=== PATIENT | female | born 1945 | race Caucasian/White ===

== ENCOUNTER 2019-08-01 12:34 | Outpatient (CLI) | payer MEDICARE, BC, SELFPAY ==
[2019-08-01 13:06] LABS: Body Fluid WBC 24 u/L; RBC, Body Fluid 0 10^3/uL (0-0)
[2019-08-01 13:19] LABS: Apprearance, Body Fluid CLEAR (CLEAR); Color, Body Fluid COLORLESS (PALE YELLOW)
[2019-08-01 13:20] LABS: PATH Referral YES
== END 2019-08-01 12:35 | disposition home or self-care (01) ==
PROVIDERS: Family Provider Physician Assistant Medical; PCP Physician Assistant Medical; Visit Provider Internal Medicine Nephrology
DX: N18.9 Chronic kidney disease, unspecified (principal); D63.1 Anemia in chronic kidney disease
CPT/HCPCS: 80500; 87070; 87075; 87205; 89050

== ENCOUNTER → 2019-09-21 14:30 | Outpatient (BNVA) | payer MEDICARE, BC, SELFPAY | PROVIDERS: Family Provider Physician Assistant Medical; PCP Physician Assistant Medical; Visit Provider Urology | DX: C67.8 Malignant neoplasm of overlapping sites of bladder (principal); R33.8 Other retention of urine | CPT/HCPCS: 81001 ==

== ENCOUNTER 2019-10-20 13:56 | Outpatient (CLI) | payer MEDICARE, BC, SELFPAY ==
--- NOTE | 2019-10-20 14:07 | XR_ITS ---
WS: [id number] ABDOMEN SERIES Supine, sitting, and upright views of the abdomen CLINICAL INFORMATION: PAIN WITH CATHETER CHECKING POSITION COMPARISON: None. FINDINGS: No free air on the upright view. Normal bowel gas pattern. Scattered stool in the colon. No bowel dis tention. No evidence of high-grade obstruction. Cholecystectomy clips. Dialysis catheter traverses the right midabdomen with tip in the right lower q uadrant Postoperative changes bilateral THAs. Moderate spondylitic changes lumbar spine. Mild lumbar curve. XR/XR abdomen 3V [id number] IMPRESSION: 1. Dialysis catheter traverses the right mid abdomen with tip in the right lo wer quadrant.
== END 2019-10-20 13:57 | disposition home or self-care (01) ==
LOC: RAD 14:00
PROVIDERS: Family Provider Physician Assistant Medical; PCP Physician Assistant Medical; Visit Provider Internal Medicine Nephrology
DX: Z45.2 Encounter for adjustment and management of vascular access device (principal); N18.6 End stage renal disease
CPT/HCPCS: 74021

== ENCOUNTER → 2020-01-25 14:15 | Outpatient (BNVA) | payer MEDICARE, BC, SELFPAY | PROVIDERS: Family Provider Physician Assistant Medical; PCP Physician Assistant Medical; Visit Provider Urology | DX: C67.8 Malignant neoplasm of overlapping sites of bladder (principal) | CPT/HCPCS: 81001 ==

== ENCOUNTER 2020-06-27 18:18 | Emergency (ER) | payer MEDICARE, BC, SELFPAY ==
[2020-06-27 18:21] VITALS: BP 142/80; PULSE 77; RESP 18; TEMP 36.7; O2SAT 97; BMI 38.6
--- NOTE | 2020-06-27 18:38 | CTR_ITS ---
PROCEDURE INFORMATION: Exam: CT Abdomen And Pelvis Without Contrast Exam date and time: 06/27/2020 6:44 PM Age: 75 years old Clinical indication: Other: Incisional bleeding; Prior surgery; Surgery type: RT kidney transplant 05/30. Bilat hip; Additional info: Abdominal pain TECHNIQUE: Imaging protocol: Computed tomography of the abdomen and pelvis without contrast. Sagittal and coronal reformatted images were created and reviewed. Radiation optimization: All CT scans at this facility use at least one of these dose optimization techniques: automated exposure control; mA and/or kV adjustment per patient size (includes targeted exams where dose is matched to clinical indication); or iterative reconstruction. COMPARISON: CR XR abdomen 3V [id number] 10/20/2019 2:13 PM RADIATION DOSE METRICS: Total DLP (mGy-cm): 1969.28 FINDINGS: Limitations: Evaluation of solid organs and vasculature is limited without intravenous contrast. Tubes, catheters and devices: A peritoneal dialysis catheter extends into the lower abdomen. Lungs: Calcified granulomas in the lower right lung. Dependent atelectasis in the left lung. Pleural space: Trace left pleural effusion. Heart: Visualized portions of the heart are mildly enlarged. Small pericardial effusion. Liver: The liver is unremarkable. Gallbladder and bile ducts: Patient has had a previous cholecystectomy. No biliary ductal dilatation. Pancreas: Moderate atrophy of the pancreatic parenchyma. 2.2 x 2.0 cm cystic focus in the uncinate process of the pancreas (series 2, image 56). No pancreatic ductal dilatation. Spleen: The spleen is unremarkable. Adrenal glands: The right and left adrenal glands are unremarkable. Kidneys and ureters: 2.0 cm cyst in the kiana right kidney. The kiana right ureter is unremarkable. There is a transplant kidney in the right lower quadrant. A double-J ureteral stent extends from the transplant kidney along the transplant ureter and into the bladder. No hydronephrosis. There is a low-density fluid collection posterior to the transplant kidney measuring 3.0 x 2.7 x 3.1 cm (series 601, image 64 and series 2, image 135). There is mild inflammation around the transplant kidney and extending inferiorly around the bladder. Patient has had a previous left nephrectomy. Stomach and bowel: No obstruction. No mucosal thickening. Appendix: Appendix not definitely visualized. No inflammatory changes in the pericecal region however. Intraperitoneal space: There is a surgical incision over the right lower quadrant of the abdomen. There is low-density fluid along the incision in the subcutaneous tissues and extending through the lower right rectus muscle and into the lower abdomen anterior to the bladder (series 2, images 122-157). Findings could represent resolving postoperative hemorrhage versus a developing postoperative hematoma. Evaluation for active bleeding cannot be performed without intravenous contrast. There are areas of separation of the incision in the patient's skin. No free intraperitoneal air. See also under kidneys and ureters . Vasculature: Mild atherosclerotic calcification in the coronary arteries. Lymph nodes: No lymphadenopathy. Urinary bladder: The bladder is incompletely filled, which can limit evaluation. See also under kidneys and ureters . Reproductive: Patient has had a previous hysterectomy. The ovaries are not definitely visualized, not an expected in a postmenopausal female. This may be due to ovarian atrophy. Alternatively, the patient may have had a previous bilateral oophorectomy. Bones/joints: Patient has had previous right and left hip arthroplasties. Bones are diffusely osteopenic. Mild degenerative changes of the right and left sacroiliac joints. Multilevel degenerative changes of varying severity in the visualized spine. Soft tissues: Mild body wall edema. See also under intraperitoneal space . CT/CT kidney stone [id number] IMPRESSION: 1. There is a transplant kidney in the right lower quadrant. A double-J ureteral stent extends from the transplant kidney along the transplant ureter and into the bladder. No hydronephrosis. There is a low-density fluid collection posterior to the transplant kidney. This could represent a postoperative seroma or hematoma versus an abscess. Mild inflammation extends from around the transplant kidney inferiorly to to the bladder, concerning for possible infection. Recommend clinical correlation. 2. There is a surgical incision over the right lower quadrant of the abdomen. There is low-density fluid and inflammation along the incision in the subcutaneous tissues and extending through the lower right rectus muscle and into the lower abdomen anterior to the bladder bladder. Findings are concerning for infection/inflammation, possible postoperative hemorrhage is also in the differential diagnosis. Evaluation for active bleeding cannot be performed without intravenous contrast. Recommend clinical correlation. There are areas of separation of the incision in the patient's skin. 3. Trace left pleural effusion. 4. Small pericardial effusion. 5. Cystic focus in the uncinate process of the pancreas. Reimaging every 6 months for 2 years, then every 1 year for 2 years, then every 2 years for 6 years is recommended. Alternatively, endoscopic ultrasound with fine needle aspiration is recommended. (Reference: Douglas, 2017) 6. Mild body wall edema. 7. Incidental/nonacute findings are listed in the report. COMMENTS: 1. Urgent results were discussed with Nurys Beltran on 06/27/2020 at 8:13 PM [employer]. 2. Consistent with the [employer]'s Incidental Findings Committee white paper (J Am Dario Radiol 2018): Any incidental renal lesion less than 1 cm or classified as too small to characterize, or any incidental cystic renal lesion characterized as simple-appearing, is likely benign. No follow-up imaging is recommended for these lesions per consensus recommendations based on imaging criteria. REFERENCES: Douglas HAYNES, et al. Management of Incidental Pancreatic Cysts: A White Paper of the ACR Incidental Findings Committee. J Am Dario Radiol. 2017;14(7):911-923. Radiation Dose CTDIVOL = (mGy): DLP = 1969.28 (mGy-cm)
[2020-06-27 19:19] LABS: Basophils % 0.2 %; Eosinophils % 0.2 %; Hematocrit 29.7 % (37.0-47.0); Hemoglobin 9.2 g/dL (11.5-15.3); Lymphocytes # 0.9 10^3/uL (0.8-4.8); Mean Corpuscular Hemoglobin 30.5 pg (28.0-34.0); Mean Corpuscular Volume 98.3 fL (81-99); Mean Platelet Volume 9.9 fL (7.4-10.4); Monocytes # 0.5 10^3/uL (0.2-0.9); Monocytes % 3.8 %; Neutrophils # 11.02 10^3/uL (1.8-7.7); Neutrophils % 88.2 %; Nucleated Red Blood Cells % 0 %; Platelet Count 245 10^3/cmm (130-400); Red Blood Count 3.02 10^6/uL (4.1-5.3); Red Cell Distribution Width 15.2 % (12.1-15.1); White Blood Count 12.5 10^3/uL (4.0-10.0)
[2020-06-27] MEDS: sodium chloride 0.9% 1,000 ML 100 ML IV (19:21)
--- NOTE | 2020-06-27 19:34 | ED_ITS ---
HPI - Wound/Laceration General: Chief Complaint: Wound/Laceration Stated Complaint: wound check Time Seen by Provider: 06/27/20 18:29 Source: patient and family Mode of arrival: ambulatory Limitations: no limitations History of Present Illness: HPI narrative: Miranda is a very nice 75-year-old female who comes in complaining of incision opening in her abdomen. Last month the patient had a kidney transplant performed at [facility] in [place]. She states that she had 1 complication of urinary tract infection for which she had to be hospitalized back at [facility]. She went home just over a week ago and has noticed that her wound continues to drain and she has discomfort surrounding it. The wound is beginning to open up more so than before. Patient denies any fevers or chills. She denies nausea or vomiting. She does feel as though she is somewhat weak all over. Is unaware of any exacerbating or alleviating factors. She is not contacted anybody at [place] about this problem. Associated symptoms: Denies chills, fever(s), nausea, syncope or vomiting Review of Systems Const: Denies: fever(s), chills, body aches, fatigue, malaise or diaphoresis Eyes: Denies: change in vision, blurry vision, photophobia, eye discomfort, eye discharge, eye redness or yellow eyes ENMT: Denies: throat pain, odynophagia, hoarseness, swelling of lips/tongue, ear or mastoid pain, ear discharge, change in hearing or nasal discharge Card: Denies: chest pain, palpitations, irregular heart rhythm, edema, lightheadedness, syncope, pre-syncope, dyspnea on exertion or orthopnea Resp: Denies: dyspnea, productive cough, non-productive cough, wheezing, hemoptysis or chest congestion GI: Denies: abdominal pain, nausea, vomiting, hematemesis, coffee ground emesis, heartburn, diarrhea, constipation, GI cramping, hematochezia or melena : Denies: flank pain, dysuria, urinary frequency, urinary urgency or hematuria Musc: Denies: neck pain, back pain, extremity pain, extremity swelling, joint pain, joint swelling, joint redness, joint warmth or joint stiffness Skin/Breast: Denies: rash, pruritus, erythema, skin pain or skin tenderness Neuro: Denies: headache(s), numbness in extremities, weakness in extremities, sensory changes, lack of coordination, difficulty walking, dizziness, vertigo, confusion, Slurred speech present or seizure-like activity Enrique/Lymph: Denies: easy bruising, easy bleeding, petechiae, purpura or enlarged lymph nodes All/Imm: Denies: urticaria, throat swelling, tongue swelling, facial swelling or acute wheezing PFSH ED 2 PFSH: Medical History (Updated 06/27/20 @ 21:21 by Nurys Cruz) Chronic kidney disease States that she follows up with Dr. Garcia who is her seo executive to come down from [place] to [place] and she sees him once a month. She states that she receives dialysis every day and has been doing this since 2018. 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 On routine surveillance cystosc Nocturnal polyuria No severe polyuria during the daytime. He has significant polyuria at night related to mobilization of lower extremity edema. Vaginitis Surgical History (Updated 06/27/20 @ 21:21 by Nurys Cruz) History of left nephrectomy States that she had her left kidney removed because of some kidney disease that she was born with however she does not remember details. History of transurethral destruction of bladder lesion Kidney transplanted S/P cholecystectomy Laparoscopic procedure at the age of 63 S/P hip replacement Bilateral hip replacement in her 60s S/P hysterectomy With bilateral salpingo-oophorectomy---->1977 -- uterine fibroid tumors, no cancer. [place], [place]-----> done via an abdominal incision. Bilateral ovaries were removed at the same S/P knee replacement Bilateral knee replacement in her 60s secondary to arthritis Status post surgery Neopcystoureterostomy, Some sort of surgery done-patient is not sure about details of surgery Family History Mother Brain tumor of same at age 46 Grandmother Stroke maternal Father Aneurysm from rupture at age 64 Grandfather Colon cancer maternal Denies family history of Ovarian cancer Diabetes Heart disease Hyperlipidemia Breast cancer Uterine cancer Thyroid condition Social History Smoking and tobacco status: former smoker Alcohol intake: unknown Additional social history: - Tobacco Use: Started smoking in her 30s and smoked up to 1/2 pack per day for approximately 15 years before she quit. Denies any use since then. 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) Physical Exam Const: COMMON NORMALS: no acute distress, patient oriented x3, no limitations and alert GENERAL APPEARANCE: cooperative HENMT: COMMON NORMALS: normocephalic, atraumatic, external ears normal, EAC's normal and Normal external nose present HEAD & SCALP: normal to inspection, normocephalic and atraumatic FACE & SINUS: normal facial exam and face symmetric NOSE: Normal external nose present and Normal nares present EXTERNAL EAR: Yes external ears normal EXTERNAL AUDITORY CANAL: EAC's normal MOUTH: Normal oral and palatal mucosa present, lip normal and tongue normal Eye: COMMON NORMALS: Equal, round and reactive pupils present and conjunctivae normal GENERAL EYE: appearance normal, both eyes and all related structures ALIGNMENT: Yes alignment normal PERIORBITAL: periorbital findings normal EYELID: eyelids normal CONJUNCTIVA: Yes conjunctivae normal SCLERA: sclerae normal PUPIL: Yes Equal, round and reactive pupils present Neck/C-Spine: COMMON NORMALS: full ROM, no lymphadenopathy, supple, no meningeal signs and no JVD GENERAL: Yes normal visual inspection and Yes trachea midline Chest: COMMONS NORMALS: normal inspection of the chest and normal palpation of entire chest wall Resp: COMMON NORMALS: normal respiratory effort, No retractions, No use of accessory muscles and clear to auscultation bilaterally EFFORT & INSPECTION: Yes able to speak in complete sentences and Yes symmetric chest movement AUSCULTATION: clear to auscultation bilaterally, no crackles, no rales, no rhonchi and no wheezes Cardio: COMMON NORMALS: no JVD, regular rate, regular rhythm, S1 normal heart sound present and S2 normal heart sound present RATE: regular rate RHYTHM: regular rhythm HEART SOUNDS: S1 normal heart sound present, S2 normal heart sound present, no click, no gallops, no murmurs and no rubs GI: COMMON NORMALS: Soft to palpation and No hepatosplenomegaly present PALPATION: Yes Soft to palpation, Yes Tenderness to palpation present (GI) (Mild tenderness around incision site. Incision site is partially open with), No Guarding due to palpation present (GI), No Rigid due to palpation, Yes No hepatosplenomegaly present, No Hernia present, No Palpable mass present and No Pulsatile mass present : COMMON NORMALS: Yes no CVA tenderness BLADDER/KIDNEY EXAM: Yes no CVA tenderness EXTERNAL FEMALE EXAM: No Hernia present Back/Pelvis: COMMON NORMALS: no CVA tenderness, thoracic and lumbar spine normal to inspection, no thoracic nor lumbar tenderness and thoraco-lumbar ROM normal Extremity: COMMON NORMALS: normal to inspection, full ROM, capillary refill normal, no joint enlargement, no clubbing, cyanosis or edema and no calf tenderness Neuro: COMMON NORMALS: patient oriented x3, CN's II-XII intact bilaterally, moves all extremities, no focal motor deficits and no sensory deficits noted SENSORIUM/ORIENTATION: Yes alert MENINGEAL SIGNS: Yes no meningeal signs SPEECH: speech normal Psych: COMMON NORMALS: mental status grossly normal, Normal thought process present, cooperative, normal affect, speech normal and activity/motor behavior normal SPEECH: Yes normal speech THOUGHT PROCESS: Normal thought process present Skin: COMMON NORMALS: no rashes or lesions noted, turgor normal, no jaundice, no petechiae and no mottling GENERAL SKIN EXAM: no rashes or lesions noted and turgor normal Course ED course: 2117 -Case reviewed with Dr. Jasmine at [facility] in [place]. She agrees with the work-up and treatment plan up to this point. She will accept the patient in transfer to [facility]. Vital Signs: Vital signs: Vital Signs Temperature 98.0 F 06/27/20 18:21 Pulse Rate 88 06/27/20 21:04 Respiratory Rate 16 06/27/20 20:46 Blood Pressure 142/80 06/27/20 18:21 Pulse Oximetry 98 06/27/20 20:46 MDM - Wound/Laceration Lab Data: Labs: Lab Results 06/27/20 06/27/20 06/27/20 Range/Units 19:00 19:00 19:00 WBC 12.5 H (4.0-10.0) 10^3/ uL RBC 3.02 L (4.1-5.3) 10^6/u L Hgb 9.2 L (11.5-15.3) g/dL Hct 29.7 L (37.0-47.0) % MCV 98.3 (81-99) fL MCH 30.5 (28.0-34.0) pg MCHC 31.0 (30.0-36.0) g/dL RDW 15.2 H (12.1-15.1) % Plt Count 245 (130-400) 10^3/c mm MPV 9.9 (7.4-10.4) fL Neut % (Auto) 88.2 % Lymph % (Auto) 7.0 % Garza % (Auto) 3.8 % Eos % (Auto) 0.2 % Baso % (Auto) 0.2 % Neut # (Auto) 11.02 H (1.8-7.7) 10^3/u L Lymph # (Auto) 0.9 (0.8-4.8) 10^3/u L Garza # (Auto) 0.5 (0.2-0.9) 10^3/u L Eos # (Auto) 0.0 (0.0-0.8) 10^3/u L Baso # (Auto) 0.0 (0.0-0.1) 10^3/u L Nucleated RBC % (a uto) 0 % Nucleated RBCs # 0.0 /100WBC Specimen Type Sample Site ABG pH (7.35-7.45) ABG pCO2 (35-45) mmHg ABG pO2 (80.0-100.0) mmH g ABG HCO3 (22-26) mmol/L ABG Base Excess (-2.0-2.0) mmol/ L Jus Test Hematocrit (37-47) % O2 Delivery Device FiO2 % [employer] Finisher ID Sodium 135 L (136-145) mmol/L Potassium 6.2 H (3.5-5.1) mmol/L Chloride 107 (98-107) mmol/L Carbon Dioxide 17 L (22-29) mmol/L Anion Gap 17.2 (5-19) BUN 59 H (8-23) mg/dL Creatinine 5.1 H (0.5-0.9) mg/dL GFR Calculation Not Reportable Glucose 178 H (65-115) mg/dL Calculated Osmolal ity 301 H (285-295) mOsm/k g Lactic Acid 0.7 (0.5-2.2) mmol/L Calcium 9.8 (8.5-10.5) mg/dL Total Bilirubin 0.3 (0.15-1.2) mg/dL AST 7 (0-32) U/L ALT 18 (0-33) U/L Alkaline Phosphata se 65 (35-105) IU/L Total Protein 5.3 L (6.6-8.7) g/dL Albumin 2.9 L (3.5-5.2) g/dL Globulin 2.4 (1.3-4.6) g/dL Urine Color (Yellow) Urine Appearance (CLEAR) Urine pH (5-7) Ur Specific Gravit y (1.005-1.030) Urine Protein (Negative) Urine Glucose (UA) (Normal) Urine Ketones (Negative) Urine Blood (Negative) Urine Nitrate (Negative) Urine Bilirubin (Negative) Urine Urobilinogen (Negative) mg/dL Ur Leukocyte Nilsa ase (Negative) Urine RBC (0-2) /hpf Urine WBC (0-5) /hpf Ur Squamous Epith Cells (0-5) /hpf Ur Transition Epit h Cell /hpf Ur Renal Epithelia l Cell /hpf Amorphous Sediment Urine Bacteria (NONE) /hpf Coarse Granular Ca sts /lpf Other Casts /lpf 06/27/20 06/27/20 Range/Units 19:20 21:05 WBC (4.0-10.0) 10^3/ uL RBC (4.1-5.3) 10^6/u L Hgb (11.5-15.3) g/dL Hct (37.0-47.0) % MCV (81-99) fL MCH (28.0-34.0) pg MCHC (30.0-36.0) g/dL RDW (12.1-15.1) % Plt Count (130-400) 10^3/c mm MPV (7.4-10.4) fL Neut % (Auto) % Lymph % (Auto) % Garza % (Auto) % Eos % (Auto) % Baso % (Auto) % Neut # (Auto) (1.8-7.7) 10^3/u L Lymph # (Auto) (0.8-4.8) 10^3/u L Garza # (Auto) (0.2-0.9) 10^3/u L Eos # (Auto) (0.0-0.8) 10^3/u L Baso # (Auto) (0.0-0.1) 10^3/u L Nucleated RBC % (a uto) % Nucleated RBCs # /100WBC Specimen Type Arterial Sample Site Radial, right ABG pH 7.44 (7.35-7.45) ABG pCO2 30.0 L (35-45) mmHg ABG pO2 89.3 (80.0-100.0) mmH g ABG HCO3 20.3 L (22-26) mmol/L ABG Base Excess -3.0 L (-2.0-2.0) mmol/ L Jus Test Pos Hematocrit 36.1 L (37-47) % O2 Delivery Device Room air FiO2 21.0 % [employer] Finisher ID Jlg Sodium (136-145) mmol/L Potassium (3.5-5.1) mmol/L Chloride (98-107) mmol/L Carbon Dioxide (22-29) mmol/L Anion Gap (5-19) BUN (8-23) mg/dL Creatinine (0.5-0.9) mg/dL GFR Calculation Glucose (65-115) mg/dL Calculated Osmolal ity (285-295) mOsm/k g Lactic Acid (0.5-2.2) mmol/L Calcium (8.5-10.5) mg/dL Total Bilirubin (0.15-1.2) mg/dL AST (0-32) U/L ALT (0-33) U/L Alkaline Phosphata se (35-105) IU/L Total Protein (6.6-8.7) g/dL Albumin (3.5-5.2) g/dL Globulin (1.3-4.6) g/dL Urine Color Yellow (Yellow) Urine Appearance Hazy A (CLEAR) Urine pH 5 (5-7) Ur Specific Gravit y 1.020 (1.005-1.030) Urine Protein 3+ H (Negative) Urine Glucose (UA) Norm (Normal) Urine Ketones Negative (Negative) Urine Blood 2+ H (Negative) Urine Nitrate Negative (Negative) Urine Bilirubin Neg (Negative) Urine Urobilinogen Norm (Negative) mg/dL Ur Leukocyte Nilsa ase Negative (Negative) Urine RBC 5-10 H (0-2) /hpf Urine WBC 0-4 H (0-5) /hpf Ur Squamous Epith Cells 15-25 H (0-5) /hpf Ur Transition Epit h Cell 5-10 /hpf Ur Renal Epithelia l Cell 5 /hpf Amorphous Sediment Not Reportable Urine Bacteria 1+ H (NONE) /hpf Coarse Granular Ca sts 15-25 H /lpf Other Casts Waxy /lpf Imaging Data^: CT Abd/Pel: Radiologist's impression: [facility] [address] [place] [address] CT Scan Report Signed Patient: Miranda Zee AUnit #: [id number] : 1945cct#:[id number] Age/Sex: 75 / FADM Date: 06/27/20 Loc: ERRoom/Bed: Attending Dr: Ordering Provider/Ordering MD: Nurys Cruz DO Date of Service: 06/27/20 Procedure(s): CT kidney stone 57296 Accession Number(s): [id number] Report Number: [id number] PROCEDURE INFORMATION: Exam: CT Abdomen And Pelvis Without Contrast Exam date and time: 06/27/2020 6:44 PM Age: 75 years old Clinical indication: Other: Incisional bleeding; Prior surgery; Surgery type: RT kidney transplant 05/30. Bilat hip; Additional info: Abdominal pain TECHNIQUE: Imaging protocol: Computed tomography of the abdomen and pelvis without contrast. Sagittal and coronal reformatted images were created and reviewed. Radiation optimization: All CT scans at this facility use at least one of these dose optimization techniques: automated exposure control; mA and/or kV adjustment per patient size (includes targeted exams where dose is matched to clinical indication); or iterative reconstruction. COMPARISON: CR XR abdomen 3V 56298 10/20/2019 2:13 PM RADIATION DOSE METRICS: Total DLP (mGy-cm): 1968.28 FINDINGS: Limitations: Evaluation of solid organs and vasculature is limited without intravenous contrast. Tubes, catheters and devices: A peritoneal dialysis catheter extends into the lower abdomen. Lungs: Calcified granulomas in the lower right lung. Dependent atelectasis in the left lung. Pleural space: Trace left pleural effusion. Heart: Visualized portions of the heart are mildly enlarged. Small pericardial effusion. Liver: The liver is unremarkable. Gallbladder and bile ducts: Patient has had a previous cholecystectomy. No biliary ductal dilatation. Pancreas: Moderate atrophy of the pancreatic parenchyma. 2.2 x 2.0 cm cystic focus in the uncinate process of the pancreas (series 2, image 56). No pancreatic ductal dilatation. Spleen: The spleen is unremarkable. Adrenal glands: The right and left adrenal glands are unremarkable. Kidneys and ureters: 2.0 cm cyst in the [place] right kidney. The [place] right ureter is unremarkable. There is a transplant kidney in the right lower quadrant. A double-J ureteral stent extends from the transplant kidney along the transplant ureter and into the bladder. No hydronephrosis. There is a low-density fluid collection posterior to the transplant kidney measuring 3.0 x 2.7 x 3.1 cm (series 601, image 64 and series 2, image 135). There is mild inflammation around the transplant kidney and extending inferiorly around the bladder. Patient has had a previous left nephrectomy. Stomach and bowel: No obstruction. No mucosal thickening. Appendix: Appendix not definitely visualized. No inflammatory changes in the pericecal region however. Intraperitoneal space: There is a surgical incision over the right lower quadrant of the abdomen. There is low-density fluid along the incision in the subcutaneous tissues and extending through the lower right rectus muscle and into the lower abdomen anterior to the bladder (series 2, images 122-157). Findings could represent resolving postoperative hemorrhage versus a developing postoperative hematoma. Evaluation for active bleeding cannot be performed without intravenous contrast. There are areas of separation of the incision in the patient's skin. No free intraperitoneal air. See also under kidneys and ureters . Vasculature: Mild atherosclerotic calcification in the coronary arteries. Lymph nodes: No lymphadenopathy. Urinary bladder: The bladder is incompletely filled, which can limit evaluation. See also under kidneys and ureters . Reproductive: Patient has had a previous hysterectomy. The ovaries are not definitely visualized, not an expected in a postmenopausal female. This may be due to ovarian atrophy. Alternatively, the patient may have had a previous bilateral oophorectomy. Bones/joints: Patient has had previous right and left hip arthroplasties. Bones are diffusely osteopenic. Mild degenerative changes of the right and left sacroiliac joints. Multilevel degenerative changes of varying severity in the visualized spine. Soft tissues: Mild body wall edema. See also under intraperitoneal space . CT/CT kidney stone 93540 IMPRESSION: 1. There is a transplant kidney in the right lower quadrant. A double-J ureteral stent extends from the transplant kidney along the transplant ureter and into the bladder. No hydronephrosis. There is a low-density fluid collection posterior to the transplant kidney. This could represent a postoperative seroma or hematoma versus an abscess. Mild inflammation extends from around the transplant kidney inferiorly to to the bladder, concerning for possible infection. Recommend clinical correlation. 2. There is a surgical incision over the right lower quadrant of the abdomen. There is low-density fluid and inflammation along the incision in the subcutaneous tissues and extending through the lower right rectus muscle and into the lower abdomen anterior to the bladder bladder. Findings are concerning for infection/inflammation, possible postoperative hemorrhage is also in the differential diagnosis. Evaluation for active bleeding cannot be performed without intravenous contrast. Recommend clinical correlation. There are areas of separation of the incision in the patient's skin. 3. Trace left pleural effusion. 4. Small pericardial effusion. 5. Cystic focus in the uncinate process of the pancreas. Reimaging every 6 months for 2 years, then every 1 year for 2 years, then every 2 years for 6 years is recommended. Alternatively, endoscopic ultrasound with fine needle aspiration is recommended. (Reference: Douglas 2017) 6. Mild body wall edema. 7. Incidental/nonacute findings are listed in the report. COMMENTS: 1. Urgent results were discussed with Nurys Beltran on 06/27/2020 at 8:13 PM LEAD PERSON. 2. Consistent with the [place] [employer]'s Incidental Findings Committee white paper (J Am Dario Radiol 2018): Any incidental renal lesion less than 1 cm or classified as too small to characterize, or any incidental cystic renal lesion characterized as simple-appearing, is likely benign. No follow-up imaging is recommended for these lesions per consensus recommendations based on imaging criteria. REFERENCES: Douglas HAYNES, et al. Management of Incidental Pancreatic Cysts: A White Paper of the ACR Incidental Findings Committee. J Am Dario Radiol. 2017;14(7):911-923. Radiation Dose CTDIVOL = (mGy): DLP = 1969.28 (mGy-cm) Dictated By:Katrin Valentin MD Signed By:Katrin Valentinigned Date/Time:06/27/202017 DD/ 16 Discharge Plan Discharge Patient Disposition: Xfer Short-Term Hosp Clinical Impression: Acute kidney failure, Kidney transplanted, Acute hyperkalemia Condition: Stable Prescriptions: No Action clobetasol 0.05 % ointment 1 applic TOPICAL .WEEKLY RF: 0 acetaminophen [Tylenol] 325 mg capsule 325 mg PO QID PRNRF: 0 losartan 25 mg tablet 25 mg PO BID RF: 0 pravastatin 10 mg tablet 10 mg PO DAILY RF: 0 bupropion HCl 150 mg tablet extended release 24 hr 150 mg PO QAM RF: 0 diltiazem HCl 360 mg capsule,extended release 24hr 360 mg PO DAILY RF: 0 furosemide 40 mg tablet 40 mg PO BID RF: 0 Zyrtec 10 mg capsule PO RF: 0 rd-dok-KQ-Ah-Ut-ytqxpal-lutein 0.4-162-18 mg tablet 1 tab PO DAILY RF: 0 iron 18 mg tablet 18 mg PO DAILY RF: 0 naproxen 250 mg tablet 250 mg PO BID PRNRF: 0 levofloxacin 250 mg tablet 250 mg PO DAILY Qty: 1 RF: 3 fluconazole 150 mg tablet 150 mg PO ONCE PRN (Reason: vaginitis) Qty: 3 RF: 3 cefuroxime axetil 500 mg tablet 500 mg PO BID Qty: 28 RF: 1 Referrals: Navin Paulson [Primary Care Provider] - Coding Level of Care Code ED Privacy Attorney for Chg Fwd Exam Comprehensive
[2020-06-27 19:51] LABS: Lactic Sepsis W/Reflex 0.7 mmol/L (0.5-2.2)
[2020-06-27 19:53] LABS: Alanine Aminotransferase 18 U/L (0-33); Albumin Level 2.9 g/dL (3.5-5.2); Alkaline Phosphatase 65 IU/L (35-105); Anion Gap 17.2 (5-19); Aspartate Amino Transferase 7 U/L (0-32); Blood Urea Nitrogen 59 mg/dL (8-23); Calcium 9.8 mg/dL (8.5-10.5); Carbon Dioxide 17 mmol/L (22-29); Chloride 107 mmol/L (98-107); Globulin 2.4 g/dL (1.3-4.6); Glucose 178 mg/dL (65-115); Osmolality Calculated 301 mOsm/kg (285-295); Potassium 6.2 mmol/L (3.5-5.1); Sodium 135 mmol/L (136-145); Total Bilirubin 0.3 mg/dL (0.15-1.2); Total Protein 5.3 g/dL (6.6-8.7)
--- NOTE | 2020-06-27 20:09 | ECG_ITS ---
[facility] Test Date: 2020-06-27 Pat Name: Miranda Zee Department: Room: Gender: Female Analytics Senior Manager: julio : 1945 Requested By: Nurys Barber Order Number: [id number] Boy MD: Aracelis Oquendo M.D. Measurements Intervals [place] Rate: 76 P: 56 CT: 165 QRS: 7 QRSD: 97 T: 31 QT: 354 QTc: 399 Interpretive Statements SINUS RHYTHM Compared to ECG 12/01/2018 10:29:42 First degree AV block no longer present Q waves in the inferior leads, suggesting old inferior wall OH Myocardial infarct finding no longer present Electronically Signed On 06-28-2020 9:41:26 CHIEF LOAD DISPATCHER by Aracelis Oquendo M.D. [id number]
[2020-06-27 20:23] LABS: Bilirubin Urine Neg (Negative); Blood Urine 2+ (Negative); Glucose Urine UA Norm (Normal); Ketones Urine Negative (Negative); Leukocyte Esterase Urine Negative (Negative); Nitrate Urine Negative (Negative); Protein Urine 3+ (Negative); Urine Appearance Hazy (CLEAR); Urine Color Yellow (Yellow); Urobilinogen Urine Norm (Negative); pH Urine 5 (5-7)
[2020-06-27 20:27] LABS: Coarse Granular Casts Urine 15-25 /lpf; Other Casts Urine WAXY /lpf
[2020-06-27 20:29] LABS: Add Urine Culture? No; Bacteria Urine 1+ /hpf; Renal Epithelial Cells Urine 5 /hpf; Squamous Epithelial Cell Urine 15-25 /hpf (0-5); WBC Urine 0-4 /hpf (0-5)
[2020-06-27 20:46] VITALS: PULSE 80; RESP 16; O2SAT 98
[2020-06-27] MEDS: calcium gluconate 0.1 gm/mL 10% SDV 10mL 1 GM IVP (20:55)
[2020-06-27] MEDS: dextrose 50% syringe 50 mL IVP ×2 (20:55→20:56)
[2020-06-27] MEDS: sodium bicarbonate 8.4% 1 mEq/mL 50mL Syr 100 MEQ IVP (20:56)
[2020-06-27] MEDS: insulin regular-human 100 units/1 mL 10 UNIT IVP (20:56)
[2020-06-27 21:04] VITALS: PULSE 88
[2020-06-27 21:19] LABS: ABG PH Result 7.44 (7.35-7.45); Arterial Blood Gas Hematocrit 36.1 % (37-47); Blood Gas Allen Test Pos; Blood Gas Sample Site Radial, right; Blood Gas Sample Type Arterial; HCO3 ABG 20.3 mmol/L (22-26); Oxygen Device ROOM AIR; PO2 ABG 89.3 mmHg (80.0-100.0)
[2020-06-27 21:26] VITALS: BP 145/87; PULSE 85; RESP 18; O2SAT 96
[2020-06-27] MEDS: LORazepam 2 mg/mL INJ 1 mL 1 MG IVP (22:22)
[2020-06-27 22:27] LABS: Anion Gap 14.2 (5-19); Blood Urea Nitrogen 59 mg/dL (8-23); Calcium 9.8 mg/dL (8.5-10.5); Carbon Dioxide 21 mmol/L (22-29); Chloride 107 mmol/L (98-107); Glucose 156 mg/dL (65-115); Osmolality Calculated 304 mOsm/kg (285-295); Potassium 5.2 mmol/L (3.5-5.1); Sodium 137 mmol/L (136-145)
[2020-06-27 22:53] VITALS: BP 155/85; PULSE 82; RESP 18; O2SAT 98
[2020-06-28] VITALS (9 sets, daily range): BP systolic 101–159; BP diastolic 62–87; PULSE 87–92; RESP 17–24; O2SAT 97–99
[2020-06-28] MEDS: morphine 4 mg/mL SDV 1 mL IVP ×3 (01:31→12:47)
[2020-06-28] MEDS: sodium chloride 0.9% 1,000 ML 150 ML IV (03:51)
[2020-06-28 07:35] LABS: Basophils % 0.3 %; Eosinophils # 0.1 10^3/uL (0.0-0.8); Eosinophils % 0.9 %; Hematocrit 29.7 % (37.0-47.0); Hemoglobin 9.1 g/dL (11.5-15.3); Lymphocytes # 0.9 10^3/uL (0.8-4.8); Lymphocytes % 8.3 %; Mean Corpuscular HGB Conc 30.6 g/dL (30.0-36.0); Mean Corpuscular Hemoglobin 30.7 pg (28.0-34.0); Mean Corpuscular Volume 100.3 fL (81-99); Mean Platelet Volume 9.8 fL (7.4-10.4); Monocytes # 0.4 10^3/uL (0.2-0.9); Monocytes % 4.2 %; Neutrophils # 9.06 10^3/uL (1.8-7.7); Neutrophils % 85.6 %; Nucleated Red Blood Cells % 0 %; Platelet Count 237 10^3/cmm (130-400); Red Blood Count 2.96 10^6/uL (4.1-5.3); Red Cell Distribution Width 15.4 % (12.1-15.1); White Blood Count 10.6 10^3/uL (4.0-10.0)
[2020-06-28 07:52] LABS: Anion Gap 17.8 (5-19); Blood Urea Nitrogen 51 mg/dL (8-23); Calcium 9.6 mg/dL (8.5-10.5); Carbon Dioxide 18 mmol/L (22-29); Chloride 107 mmol/L (98-107); Glucose 101 mg/dL (65-115); Osmolality Calculated 298 mOsm/kg (285-295); Potassium 5.8 mmol/L (3.5-5.1); Sodium 137 mmol/L (136-145)
== END 2020-06-28 13:30 | disposition short-term general hospital (02) ==
PROVIDERS: Emergency Provider Emergency Medicine; PCP Physician Assistant Medical
DX: N17.9 Acute kidney failure, unspecified (principal); Z94.0 Kidney transplant status; E87.5 Hyperkalemia; I10 Essential (primary) hypertension; Z85.51 Personal history of malignant neoplasm of bladder; Z87.891 Personal history of nicotine dependence
CPT/HCPCS: 12345; 36600; 74176; 80048; 80053; 81001; 82803; 83605; 85025; 87040; 93005; 94640; 96365; 96367; 96375; 96376; 99283; 99285; J0610; J0743; J1815; J2060; J2270; J7030; J7611

== ENCOUNTER 2020-07-31 18:51 | Emergency (ER) | payer MEDICARE, BC, SELFPAY ==
[2020-07-31] VITALS (7 sets, daily range): BP systolic 160–180; BP diastolic 62–97; PULSE 77–86; RESP 18–19; TEMP 36.7; O2SAT 94–98; BMI 38.0
--- NOTE | 2020-07-31 19:19 | XRR_ITS ---
PROCEDURE INFORMATION: Exam: XR Chest, 1 View Exam date and time: 07/31/2020 7:40 PM Age: 75 years old Clinical indication: Fever; Patient HX: Kidney transplant, HX of bladder cancer TECHNIQUE: Imaging protocol: XR of the chest Views: 1 view. COMPARISON: CR Chest 2 views* [id number] 12/01/2018 10:35 AM FINDINGS: Lungs: Mild airspace disease within the left lung base. Pleural space: Unremarkable. No pleural effusion. No pneumothorax. Heart/Mediastinum: Cardiac silhouette is enlarged. Dialysis catheter via the right internal jugular approach with the tip in the region of the caval atrial junction. Bones/joints: Unremarkable. XR/XR chest 1V portable [id number] IMPRESSION: Mild airspace disease within the left lung base. Subpulmonic effusion. Findings are progressive.
--- NOTE | 2020-07-31 19:20 | ECG_ITS ---
[facility] Test Date: 2020-07-31 Pat Name: Miranda Zee Department: Room: Gender: Female Homemaking Rehabilitation Consultant: : 1945 Requested By: Jaclyn Wheat Order Number: [id number] Boy MD: Virginia Javed M.D. Measurements Intervals [place] Rate: 76 P: 46 OR: 154 QRS: 9 QRSD: 90 T: 33 QT: 366 QTc: 412 Interpretive Statements SINUS RHYTHM PROBABLE INFERIOR MYOCARDIAL INFARCTION , PROBABLY OLD [35 ms Q WAVE IN II/aVF] Compared to ECG 06/27/2020 20:24:00 Myocardial infarct finding now present Electronically Signed On 08-01-2020 20:16:12 DE IONIZER OPERATOR by Virginia Javed M.D. [id number]
--- NOTE | 2020-07-31 19:22 | W.ED.GENADLT ---
HPI - General Adult General: Chief complaint: Nausea/Vomiting/Diarrhea Stated complaint: Kidney transplant/doctor called ahead Time Seen by Provider: 07/31/20 19:08 Source: patient Mode of arrival: ambulatory Limitations: no limitations History of Present Illness: HPI narrative: 75-year-old female with a history of renal transplant in May. Patient states that she has been having body aches and chills and not feeling well over the last 3 to 4 days. She was seen at the clinic today and had blood drawn and had a white blood cell count of 25 and a creatinine of 6. Patient was sent to the ER for likely infection. She denies any cough or vomiting. She denies any pain anywhere. She did have a wound to her abdomen from her surgeon has a wound VAC but it does appear to be healing well. She denies any vomiting or diarrhea. Patient receives dialysis Friday and did miss her dialysis today. Associated symptoms: Deny chest pain, dyspnea, headache(s), nausea, rash or vomiting Review of Systems Const: Reports: chills and body aches; Denies: fever(s) or change in appetite Eyes: Denies: blurry vision or eye discomfort ENMT: Denies: throat pain or dental pain Card: Denies: chest pain Resp: Denies: dyspnea GI: Denies: abdominal pain, nausea, vomiting or diarrhea : Denies: dysuria Musc: Denies: neck pain or back pain Skin/Breast: Denies: rash Neuro: Denies: headache(s) Psych: Denies: depression Enrique/Lymph: Denies: easy bruising All/Imm: Denies: urticaria PFSH ED PFSH: Medical History Chronic kidney disease States that she follows up with Dr. Garcia who is her director of compensation to come down from [place] to [place] and she sees him once a month. She states that she receives dialysis every day and has been doing this since 2018. 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 On routine surveillance cystosc Nocturnal polyuria No severe polyuria during the daytime. He has significant polyuria at night related to mobilization of lower extremity edema. 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 History of transurethral destruction of bladder lesion Kidney transplanted S/P cholecystectomy Laparoscopic procedure at the age of 63 S/P hip replacement Bilateral hip replacement in her 60s S/P hysterectomy With bilateral salpingo-oophorectomy---->1977 -- uterine fibroid tumors, no cancer. [facility] [place], [place]-----> done via an abdominal incision. Bilateral ovaries were removed at the same S/P knee replacement Bilateral knee replacement in her 60s secondary to arthritis Status post surgery Neopcystoureterostomy, Some sort of surgery done-patient is not sure about details of surgery Family History Mother Brain tumor of same at age 46 Grandmother Stroke maternal Father Aneurysm from rupture at age 64 Grandfather Colon cancer maternal Denies family history of Ovarian cancer Diabetes Heart disease Hyperlipidemia Breast cancer Uterine cancer Thyroid condition Social History Smoking and tobacco status: former smoker Alcohol intake: unknown Additional social history: - Tobacco Use: Started smoking in her 30s and smoked up to 1/2 pack per day for approximately 15 years before she quit. Denies any use since then. 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) Physical Exam Const: COMMON NORMALS: no acute distress, patient oriented x3 and healthy appearing HENMT: COMMON NORMALS: normocephalic and atraumatic HEAD & SCALP: normocephalic and atraumatic Eye: COMMON NORMALS: Equal, round and reactive pupils present and EOMs intact bilaterally PUPIL: Yes Equal, round and reactive pupils present Neck/C-Spine: COMMON NORMALS: full ROM and supple Chest: COMMONS NORMALS: normal inspection of the chest and normal palpation of entire chest wall Resp: COMMON NORMALS: normal respiratory effort, No retractions, No use of accessory muscles and clear to auscultation bilaterally AUSCULTATION: clear to auscultation bilaterally Cardio: COMMON NORMALS: regular rate, regular rhythm and No murmurs present (Cardio) RATE: regular rate RHYTHM: regular rhythm GI: COMMON NORMALS: Normal to inspection, nondistended, normoactive bowel sounds present, Soft to palpation, non-tender and no masses PALPATION: Yes Soft to palpation Extremity: COMMON NORMALS: normal to inspection and full ROM Neuro: COMMON NORMALS: patient oriented x3, moves all extremities and no focal motor deficits Psych: COMMON NORMALS: mental status grossly normal, Normal thought process present and cooperative THOUGHT PROCESS: Normal thought process present Skin: COMMON NORMALS: no rashes or lesions noted and no wounds GENERAL SKIN EXAM: no rashes or lesions noted Course Vital Signs: Vital signs: Vital Signs Temperature 98.1 F 07/31/20 19:15 Pulse Rate 78 07/31/20 23:32 Respiratory Rate 19 H 07/31/20 23:12 Blood Pressure 172/73 07/31/20 23:32 Pulse Oximetry 94 07/31/20 23:32 MDM - General Adult MDM Narrative: Medical decision making narrative: Miranda presents here with leukocytosis and history of recent kidney transplant. Patient is afebrile here has been having chills and weakness. I spoke to her transplant surgeon who recommended IV antibiotics and wanted her transferred there. Patient has been stable while here and will transfer there. Lab Data: Labs: Lab Results 07/31/20 07/31/20 07/31/20 Range/Units 20:07 20:07 20:07 WBC 25.1 H (4.0-10.0) 10^3/ uL RBC 2.89 L (4.1-5.3) 10^6/u L Hgb 8.7 L (11.5-15.3) g/dL Hct 28.2 L (37.0-47.0) % MCV 97.6 (81-99) fL MCH 30.1 (28.0-34.0) pg MCHC 30.9 (30.0-36.0) g/dL RDW 15.7 H (12.1-15.1) % Plt Count 236 (130-400) 10^3/c mm MPV 9.8 (7.4-10.4) fL Neut % (Auto) 88.6 % Lymph % (Auto) 3.8 % Nolan % (Auto) 4.3 % Eos % (Auto) 0.1 % Baso % (Auto) 0.4 % Neut # (Auto) 22.24 H (1.8-7.7) 10^3/u L Lymph # (Auto) 1.0 (0.8-4.8) 10^3/u L Nolan # (Auto) 1.1 H (0.2-0.9) 10^3/u L Eos # (Auto) 0.0 (0.0-0.8) 10^3/u L Baso # (Auto) 0.1 (0.0-0.1) 10^3/u L Nucleated RBC % (a uto) 0.1 % Nucleated RBCs # 0.0 /100WBC Sodium 133 L (136-145) mmol/L Potassium 4.5 (3.5-5.1) mmol/L Chloride 95 L (98-107) mmol/L Carbon Dioxide 26 (22-29) mmol/L Anion Gap 16.5 (5-19) BUN 33 H (8-23) mg/dL Creatinine 6.0 H* (0.5-0.9) mg/dL GFR Calculation Not Reportable Glucose 163 H (65-115) mg/dL Calculated Osmolal ity 287 (285-295) mOsm/k g Lactate 0.8 (0.5-2.2) mmol/L Calcium 9.8 (8.5-10.5) mg/dL Total Bilirubin 0.6 (0.15-1.2) mg/dL AST 8 (0-32) U/L ALT 9 (0-33) U/L Alkaline Phosphata se 69 (35-105) IU/L Total Protein 5.4 L (6.6-8.7) g/dL Albumin 2.9 L (3.5-5.2) g/dL Globulin 2.5 (1.3-4.6) g/dL Imaging Data^: CXR: Attestation: I personally reviewed and interpreted this imaging study as follows: My impression: no acute abnormality EKG Data^: EKG 1: Attestation: I personally reviewed and interpreted this EKG as follows: EKG interpretation date: 07/31/20 EKG interpretation time: 20:29 Interpretation: nsr hr [address] or t wave abnormalities qrs 90 qtc 396 Discharge Plan Discharge Patient Disposition: Xfer Other Clinical Impression: Kidney transplanted, Leukocytosis Condition: Stable Referrals: Navin Paulson [Primary Care Provider] - Coding Level of Care Code ED Antique Finisher for Chg Fwd Exam Comprehensive
[2020-07-31 20:19] LABS: Basophils # 0.1 10^3/uL (0.0-0.1); Basophils % 0.4 %; Eosinophils % 0.1 %; Hematocrit 28.2 % (37.0-47.0); Hemoglobin 8.7 g/dL (11.5-15.3); Lymphocytes % 3.8 %; Mean Corpuscular HGB Conc 30.9 g/dL (30.0-36.0); Mean Corpuscular Hemoglobin 30.1 pg (28.0-34.0); Mean Corpuscular Volume 97.6 fL (81-99); Mean Platelet Volume 9.8 fL (7.4-10.4); Monocytes # 1.1 10^3/uL (0.2-0.9); Monocytes % 4.3 %; Neutrophils # 22.24 10^3/uL (1.8-7.7); Neutrophils % 88.6 %; Nucleated Red Blood Cells % 0.1 %; Platelet Count 236 10^3/cmm (130-400); Red Blood Count 2.89 10^6/uL (4.1-5.3); Red Cell Distribution Width 15.7 % (12.1-15.1); White Blood Count 25.1 10^3/uL (4.0-10.0)
[2020-07-31 20:53] LABS: Lactate (Lactic Acid level) 0.8 mmol/L (0.5-2.2)
[2020-07-31 20:54] LABS: Alanine Aminotransferase 9 U/L (0-33); Albumin Level 2.9 g/dL (3.5-5.2); Alkaline Phosphatase 69 IU/L (35-105); Anion Gap 16.5 (5-19); Aspartate Amino Transferase 8 U/L (0-32); Blood Urea Nitrogen 33 mg/dL (8-23); Calcium 9.8 mg/dL (8.5-10.5); Carbon Dioxide 26 mmol/L (22-29); Chloride 95 mmol/L (98-107); Globulin 2.5 g/dL (1.3-4.6); Glucose 163 mg/dL (65-115); Osmolality Calculated 287 mOsm/kg (285-295); Potassium 4.5 mmol/L (3.5-5.1); Sodium 133 mmol/L (136-145); Total Bilirubin 0.6 mg/dL (0.15-1.2); Total Protein 5.4 g/dL (6.6-8.7)
--- NOTE | 2020-07-31 21:04 | PC.PHAR ---
pt states she and a lady from [facility] take care of her medications-pt could verify some of her medications but wasnt sure if she was taking the atovaquone 750mg/ml ext med history shows filled on 07/31/20,keflex 500mg bid filled on 06/19/2020 30d/s,sodium bicarbonate 650mg bid filled on 06/27/2020,valganciclovir 450mg bid filled on 07/31/20, losartan 25mg qam and at noon,lokelma 10mg daily filled on 06/28/2020 30d/s. pts daughter states the pt had a med list in her purse with mycophenolate,tacrolimus,prednisone on it.pts list had heparin on it but the pt states she is NOT using heparin-pt states that was just while she was in the hospital-
[2020-07-31] MEDS: acetaminophen 500 mg Tablet 1000 MG PO (21:13)
[2020-07-31] MEDS: vancomycin 1,000 MG in sodium chloride 0.9% 250 ML 250 MG IV (22:12)
[2020-07-31] MEDS: aztreonam 2,000 MG in sodium chloride 0.9% (plus) 100 ML 200 MG IV (23:30)
[2020-08-01] LABS: Add Urine Microscopic? NO
[2020-08-01 00:27] LABS: Bilirubin Urine Neg (Negative); Blood Urine Neg (Negative); Glucose Urine UA Norm (Normal); Ketones Urine Negative (Negative); Leukocyte Esterase Urine Negative (Negative); Nitrate Urine Negative (Negative); Protein Urine 2+ (Negative); Specific Gravity, Urine 1.005 (1.005-1.030); Urine Appearance Clear (CLEAR); Urine Color Yellow (Yellow); Urobilinogen Urine Norm (Negative)
== END 2020-08-01 | disposition other institution (70) ==
PROVIDERS: Emergency Provider Emergency Medicine; PCP Physician Assistant Medical
DX: D72.829 Elevated white blood cell count, unspecified (principal); Z94.0 Kidney transplant status; I10 Essential (primary) hypertension; Z85.51 Personal history of malignant neoplasm of bladder; Z87.891 Personal history of nicotine dependence; R52 Pain, unspecified
CPT/HCPCS: 12345; 71045; 80053; 81003; 83605; 85025; 87040; 87086; 93005; 96365; 96367; 99283; 99285; J3370; J3490; J7050

== ENCOUNTER 2020-10-21 17:45 | Emergency (ER) | payer MEDICARE, BC, SELFPAY ==
[2020-10-21 18:02] VITALS: BP 146/71; PULSE 73; RESP 18; TEMP 37.3; O2SAT 96; BMI 38.0
--- NOTE | 2020-10-21 18:31 | XRR_ITS ---
PROCEDURE INFORMATION: Exam: XR Chest Exam date and time: 10/21/2020 7:01 PM Age: 75 years old Clinical indication: Fever TECHNIQUE: Imaging protocol: XR of the chest. Views: 1 view. COMPARISON: CR XR chest 1V portable [id number] 07/31/2020 7:29 PM FINDINGS: Lungs: Mild hyperinflation of lungs. Coarse reticular interstitial lung change. No focal lung consolidation. Pleural spaces: Unremarkable. No pleural effusion. No pneumothorax. Heart/Mediastinum: Unremarkable. No cardiomegaly. Vasculature: Mild atherosclerosis of aortic arch. Bones/joints: Severe joint space loss in the shoulders with osteophytic spurring between the glenoid and the inferior humeral heads. XR/XR chest 1V portable [id number] IMPRESSION: No focal acute pulmonary disease.
--- NOTE | 2020-10-21 18:31 | CTR_ITS ---
PROCEDURE INFORMATION: Exam: CT Abdomen And Pelvis Without Contrast Exam date and time: 10/21/2020 6:36 PM Age: 75 years old Clinical indication: Fever and nausea and vomiting; Prior surgery; Surgery date: 6+ months; Surgery type: Renal transplant 06/02; Patient HX: Abd pain w n/v and fever; Additional info: Fever ab pain TECHNIQUE: Imaging protocol: Computed tomography of the abdomen and pelvis without contrast. Radiation optimization: All CT scans at this facility use at least one of these dose optimization techniques: automated exposure control; mA and/or kV adjustment per patient size (includes targeted exams where dose is matched to clinical indication); or iterative reconstruction. COMPARISON: CT kidney stone [id number] 06/27/2020 7:19 PM RADIATION DOSE METRICS: Total DLP (mGy-cm): 1664.49 FINDINGS: Pleural spaces: Small volume left pleural effusion. Trace volume right pleural effusion. Heart: Trace volume pericardial effusion. Liver: Normal. No mass. Gallbladder and bile ducts: Cholecystectomy. No dilation of the biliary system. Pancreas: Atrophic pancreas without acute peripancreatic inflammation. Cystic lesion extends posterior from the uncinate process area of the pancreas stable in size and shape from prior. Lesion measures about 2.2 cm x 2.1 cm on transaxial series 2, image 46. No dilation of the main pancreatic duct. Spleen: Normal. No splenomegaly. Adrenal glands: Normal. No mass. Kidneys and ureters: Left kidney is absent. [place] right kidney demonstrates moderate diffuse cortical atrophy. No hydronephrosis. No acute perinephric inflammation. Renal transplant in the right iliac fossa. Parenchyma appears edematous and enlarged compared prior. There is some effacement of the renal sinus with hazy edema of the renal sinus fat and perirenal fat stranding as well. Small adjacent perirenal cystic lesion measures 2.4 cm x 2.1 cm on transaxial series 2, image 124 slightly increased in size from prior of uncertain etiology. No hydronephrosis of the transplant. Stomach and bowel: No bowel obstruction. No evidence of bowel perforation. Moderate fecal volume. Appendix: No evidence of appendicitis. Intraperitoneal space: Unremarkable. No free air. No significant fluid collection. Vasculature: Moderate atherosclerosis of abdominal aorta. No aneurysm. Lymph nodes: Unremarkable. No enlarged lymph nodes. Urinary bladder: Bladder decompressed. Reproductive: Unremarkable as visualized. Bones/joints: Bones are demineralized. Bilateral hip arthroplasty. No suspicious bone lesion. No acute fracture. Unremarkable lumbar spine alignment. Moderate spondyloarthropathy. Soft tissues: There is a soft tissue wound in the right lower quadrant the abdomen with surgical packing present. Mild anasarca of body wall. CT/CT kidney stone [id number] IMPRESSION: 1. Nonspecific edematous changes of the renal transplant within the right iliac fossa. Appearance could indicate pyelonephritis or rejection. 2. Lobulated cystic collection adjacent the renal transplant mildly increased in size from prior. 3. Soft tissue wound with surgical packing in the right lower quadrant ventral abdominal wall. Radiation Dose CTDIVOL = (mGy): DLP = 1664.49 (mGy-cm)
--- NOTE | 2020-10-21 18:38 | W.ED.GENADLT ---
HPI - General Adult General: Chief complaint: General Medical Stated complaint: POSS KIDNEY INFECTION Time Seen by Provider: 10/21/20 18:20 History of Present Illness: HPI narrative: 75-year-old female with a history of recent renal transplant surgery on the right back in May. She has had a problem with an ongoing open wound requiring wound VAC treatment. She is now down to a small open area to her right lower quadrant. As of yesterday she began with a headache, some mild chills, and low-grade fever. She is not felt well all day today either with the same symptoms. Mild nausea. No increase in pain, no cough or congestion. She does have some mild diarrhea. Onset (ago): day(s) Radiation: non-radiation Pain Consistency: intermittent Associated symptoms: Reports fevers/chills, headache(s) and nausea; Deny chest pain, confusion, cough, diaphoresis, dyspnea, rash, palpitations, vomiting or weakness Treatments prior to arrival: none Review of Systems Const: Reports: fever(s), chills and fatigue; Denies: body aches or diaphoresis ENMT: Denies: throat pain, odynophagia or nasal congestion Card: Reports: edema (improving); Denies: chest pain or palpitations Resp: Denies: dyspnea, productive cough or non-productive cough GI: Reports: nausea; Denies: vomiting : Reports: flank pain (chronic) Skin/Breast: Denies: rash Neuro: Reports: headache(s); Denies: dizziness or confusion PFS ED PFSH: Medical History Chronic kidney disease States that she follows up with Dr. Garcia who is her coin machine assembler to come down from [place] to [place] and she sees him once a month. She states that she receives dialysis every day and has been doing this since 2018. 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 On routine surveillance cystosc Nocturnal polyuria No severe polyuria during the daytime. He has significant polyuria at night related to mobilization of lower extremity edema. 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 History of transurethral destruction of bladder lesion Kidney transplanted S/P cholecystectomy Laparoscopic procedure at the age of 63 S/P hip replacement Bilateral hip replacement in her 60s S/P hysterectomy With bilateral salpingo-oophorectomy---->1977 -- uterine fibroid tumors, no cancer. [place]-----> done via an abdominal incision. Bilateral ovaries were removed at the same S/P knee replacement Bilateral knee replacement in her 60s secondary to arthritis Status post surgery Neopcystoureterostomy, Some sort of surgery done-patient is not sure about details of surgery Family History Mother Brain tumor of same at age 46 Grandmother Stroke maternal Father Aneurysm from rupture at age 64 Grandfather Colon cancer maternal Denies family history of Ovarian cancer Diabetes Heart disease Hyperlipidemia Breast cancer Uterine cancer Thyroid condition Social History Smoking and tobacco status: former smoker Alcohol intake: unknown Additional social history: - Tobacco Use: Started smoking in her 30s and smoked up to 1/2 pack per day for approximately 15 years before she quit. Denies any use since then. 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) Physical Exam Const: GENERAL APPEARANCE: well developed ORIENTATION/CONSCIOUSNESS: Yes oriented to person, Yes oriented to place and Yes oriented to time HENMT: COMMON NORMALS: normocephalic, external ears normal and Normal external nose present HEAD & SCALP: normocephalic FACE & SINUS: normal facial exam NOSE: Normal external nose present and No nasal discharge present EXTERNAL EAR: Yes external ears normal Eye: COMMON NORMALS: Equal, round and reactive pupils present, EOMs intact bilaterally and conjunctivae normal EYELID: eyelids normal CONJUNCTIVA: Yes conjunctivae normal PUPIL: Yes Equal, round and reactive pupils present Neck/C-Spine: GENERAL: No tracheal deviation Chest: COMMONS NORMALS: normal inspection of the chest CHEST: No tenderness Resp: COMMON NORMALS: clear to auscultation bilaterally EFFORT & INSPECTION: No tachypneic, No respiratory distress, No retractions, No uses accessory muscles and No tracheal deviation AUSCULTATION: clear to auscultation bilaterally, no rhonchi, no wheezes and lung sounds not diminished Cardio: COMMON NORMALS: regular rate and regular rhythm RATE: regular rate RHYTHM: regular rhythm HEART SOUNDS: no murmurs PERIPHERAL PULSES: radial pulses present GI: INSPECTION: No abdominal distension AUSCULTATION: No Hyperactive bowel sounds present and No Hypoactive bowel sounds present PALPATION: Yes Tenderness to palpation present (GI) (mild right ), No Guarding due to palpation present (GI) and No Rigid due to palpation Neuro: SENSORIUM/ORIENTATION: Yes oriented to person, Yes oriented to place and Yes oriented to time Psych: COMMON NORMALS: mental status grossly normal Skin: COMMON NORMALS: no rashes or lesions noted GENERAL SKIN EXAM: no rashes or lesions noted Course Consultations: Consultation #1: KALE[facility] Prado transplant team Time: 21:16 Vital Signs: Vital signs: Vital Signs Temperature 99.1 F 10/21/20 18:02 Pulse Rate 73 10/21/20 23:07 Respiratory Rate 18 10/21/20 23:07 Blood Pressure 153/81 10/21/20 23:07 Pulse Oximetry 96 10/21/20 23:07 MDM - General Adult MDM Narrative: Medical decision making narrative: 75-year-old female renal transplant patient with low-grade fever. White blood cell count is 4.7. CRP is elevated at 33. Her temperature is 99.1 here. Her creatinine is down to 2.7. On CT, she has some surrounding inflammation of the right kidney. Urinalysis was contaminated, but did not show a definite urinary tract infection. Chest x-ray is negative for infiltrate. No definite source of fever. Talked with the renal transplant team at [facility] she receives care. Given her good-looking clinical status, recommendations are waste cotton cleaner urine specimen, and sent for culture, cover with antibiotics until blood and urine cultures return, and Covid PCR swab. I agree. She will be allowed home on Omnicef. She received her first dose here. She knows to call the transplant director of food and nutrition services on Friday to update them on her clinical status. Lab Data: Labs: Lab Results 10/21/20 10/21/20 10/21/20 Range/Units 18:40 18:40 18:40 WBC 4.7 (4.0-10.0) 10^3/ uL RBC 3.24 L (4.1-5.3) 10^6/u L Hgb 9.4 L (11.5-15.3) g/dL Hct 29.8 L (37.0-47.0) % MCV 92.0 (81-99) fL MCH 29.0 (28.0-34.0) pg MCHC 31.5 (30.0-36.0) g/dL RDW 15.1 (12.1-15.1) % Plt Count 215 (130-400) 10^3/c mm MPV 9.9 (7.4-10.4) fL Neut % (Auto) 70.1 % Lymph % (Auto) 8.1 % Knox % (Auto) 10.5 % Eos % (Auto) 0.4 % Baso % (Auto) 0.4 % Neut # (Auto) 3.27 (1.8-7.7) 10^3/u L Lymph # (Auto) 0.4 L (0.8-4.8) 10^3/u L Knox # (Auto) 0.5 (0.2-0.9) 10^3/u L Eos # (Auto) 0.0 (0.0-0.8) 10^3/u L Baso # (Auto) 0.0 (0.0-0.1) 10^3/u L Nucleated RBC % (a uto) 0 % Nucleated RBCs # 0.0 /100WBC Sodium 134 L (136-145) mmol/L Potassium 4.3 (3.5-5.1) mmol/L Chloride 101 (98-107) mmol/L Carbon Dioxide 22 (22-29) mmol/L Anion Gap 15.3 (5-19) BUN 32 H (8-23) mg/dL Creatinine 2.7 H (0.5-0.9) mg/dL GFR Calculation Not Reportable Glucose 106 (65-115) mg/dL Calculated Osmolal ity 285 (285-295) mOsm/k g Lactate 0.6 (0.5-2.2) mmol/L Calcium 9.2 (8.5-10.5) mg/dL Total Bilirubin 0.5 (0.15-1.2) mg/dL AST 19 (0-32) U/L ALT 11 (0-33) U/L Alkaline Phosphata se 48 (35-105) IU/L C-Reactive Protein 32.9 H (0.0-4.9) mg/L Total Protein 5.6 L (6.6-8.7) g/dL Albumin 3.7 (3.5-5.2) g/dL Globulin 1.9 (1.3-4.6) g/dL Lipase 8 L (13-60) U/L Procalcitonin 0.20 (0-0.5) ng/mL Urine Color Urine Appearance Urine pH Ur Specific Gravit y Urine Protein Urine Glucose (UA) Urine Ketones Urine Blood Urine Nitrate Urine Bilirubin Prot Sulfosalicyli c Acd Urine Urobilinogen Ur Leukocyte Nilsa ase Ur Microscopic Ind ic Urine RBC Urine WBC Ur Squamous Epith Cells Ur Transition Epit h Cell Ur Renal Epithelia l Cell Calcium Oxalate Cr ystal Uric Acid Crystals Triple Phos Kassidy ls Other Crystals Amorphous Sediment Urine Bacteria Hyaline Casts Fine Granular Cast s Coarse Granular Ca sts RBC Casts Other Casts Urine Mucus Urine Trichomonas Urine Yeast Urine Sperm Ur Oval Fat Bodies 10/21/20 10/21/20 Range/Units 18:40 21:49 WBC (4.0-10.0) 10^3/ uL RBC (4.1-5.3) 10^6/u L Hgb (11.5-15.3) g/dL Hct (37.0-47.0) % MCV (81-99) fL MCH (28.0-34.0) pg MCHC (30.0-36.0) g/dL RDW (12.1-15.1) % Plt Count (130-400) 10^3/c mm MPV (7.4-10.4) fL Neut % (Auto) % Lymph % (Auto) % Knox % (Auto) % Eos % (Auto) % Baso % (Auto) % Neut # (Auto) (1.8-7.7) 10^3/u L Lymph # (Auto) (0.8-4.8) 10^3/u L Knox # (Auto) (0.2-0.9) 10^3/u L Eos # (Auto) (0.0-0.8) 10^3/u L Baso # (Auto) (0.0-0.1) 10^3/u L Nucleated RBC % (a uto) % Nucleated RBCs # /100WBC Sodium (136-145) mmol/L Potassium (3.5-5.1) mmol/L Chloride (98-107) mmol/L Carbon Dioxide (22-29) mmol/L Anion Gap (5-19) BUN (8-23) mg/dL Creatinine (0.5-0.9) mg/dL GFR Calculation Glucose (65-115) mg/dL Calculated Osmolal ity (285-295) mOsm/k g Lactate (0.5-2.2) mmol/L Calcium (8.5-10.5) mg/dL Total Bilirubin (0.15-1.2) mg/dL AST (0-32) U/L ALT (0-33) U/L Alkaline Phosphata se (35-105) IU/L C-Reactive Protein (0.0-4.9) mg/L Total Protein (6.6-8.7) g/dL Albumin (3.5-5.2) g/dL Globulin (1.3-4.6) g/dL Lipase (13-60) U/L Procalcitonin (0-0.5) ng/mL Urine Color Cancelled Yellow Urine Appearance Cancelled Clear Urine pH Cancelled 7 Ur Specific Gravit y Cancelled 1.005 Urine Protein Cancelled 3+ H Urine Glucose (UA) Cancelled Norm Urine Ketones Cancelled Negative Urine Blood Cancelled 2+ H Urine Nitrate Cancelled Negative Urine Bilirubin Cancelled Neg Prot Sulfosalicyli c Acd Cancelled Urine Urobilinogen Cancelled Norm Ur Leukocyte Nilsa ase Cancelled Negative Ur Microscopic Ind ic Cancelled Urine RBC Cancelled 5-10 H Urine WBC Cancelled 0-4 H Ur Squamous Epith Cells Cancelled 5-10 H Ur Transition Epit h Cell Cancelled Ur Renal Epithelia l Cell Cancelled Calcium Oxalate Cr ystal Cancelled Uric Acid Crystals Cancelled Triple Phos Kassidy ls Cancelled Other Crystals Cancelled Amorphous Sediment Cancelled Not Reportable Urine Bacteria Cancelled 1+ H Hyaline Casts Cancelled Fine Granular Cast s Cancelled Coarse Granular Ca sts Cancelled RBC Casts Cancelled Other Casts Cancelled Urine Mucus Cancelled Urine Trichomonas Cancelled Urine Yeast Cancelled Trace Urine Sperm Cancelled Ur Oval Fat Bodies Cancelled Discharge Plan Discharge Patient Disposition: Home Clinical Impression: Fever Qualifiers: Fever type: unspecified Qualified Code(s): R50.9 - Fever, unspecified Condition: Stable Prescriptions: New cefdinir 300 mg capsule 300 mg PO BID 7 Days Qty: 14 RF: 0 No Action acetaminophen [Tylenol] 325 mg capsule 650 mg PO PRN RF: 0 pravastatin 10 mg tablet 10 mg PO BEDTIME RF: 0 bupropion HCl 150 mg tablet extended release 24 hr 150 mg PO QAM RF: 0 Zyrtec 10 mg capsule 5 - 10 mg PO DAILY PRN (Reason: Allergy Symptoms) RF: 0 valganciclovir 450 mg Tablet 450 mg PO BID RF: 0 carvedilol 25 mg Tablet 25 mg PO BID RF: 0 sodium bicarbonate 650 mg Tablet 650 mg PO BID RF: 0 pantoprazole 40 mg Tablet,Delayed Release (Dr/Ec) 40 mg PO QAM RF: 0 aspirin 81 mg Tablet,Chewable 81 mg PO QAM RF: 0 cephalexin 500 mg Tablet 500 mg PO BID RF: 0 zolpidem [Ambien] 5 mg Tablet 5 mg PO BEDTIME PRN (Reason: Sleep) RF: 0 atovaquone 750 mg/5 mL Suspension 750 mg PO DAILY RF: 0 ondansetron HCl 4 mg tablet 4 mg PO TID PRN (Reason: Nausea And Vomiting) RF: 0 prednisone 5 mg Tablet 5 mg PO DAILY RF: 0 furosemide 80 mg tablet 80 mg PO DAILY RF: 0 losartan 25 mg tablet See Rx Instructions .ROUTE .COMPLEX RF: 0 tacrolimus 1 mg Capsule See Rx Instructions .ROUTE .COMPLEX RF: 0 mycophenolate sodium 360 mg Tablet,Delayed Release (Dr/Ec) See Rx Instructions .ROUTE .COMPLEX RF: 0 cholecalciferol (vitamin D3) 50 mcg (2,000 unit) capsule 50 mcg PO DAILY RF: 0 Lokelma 10 gram powder in packet 10 g PO DAILY RF: 0 Discharge Orders: Discharge ED (Routine); Ordered 10/21/20 Ordered By: Reyes Dowd Referrals: Navin Paulson [Primary Care Provider] - Discharge Diet: Advance as tolerated Discharge Activity: Increase activity as tolerated Patient Instructions: Fever in Adults (ED) Activity Restrictions/Additional Instructions: Return for fever greater than 100 despite 2-3 doses of antibiotics, worsening condition despite treatment such as worsening headache, mental status changes, vomiting liquids or medications, increasing pain, rash, any other concerning symptoms. Call the [facility] transplant endless steamer tender Friday to report your symptoms at that time. Antibiotics as directed. 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
[2020-10-21 18:49] VITALS: RESP 18
[2020-10-21 18:53] LABS: Basophils % 0.4 %; Eosinophils % 0.4 %; Hematocrit 29.8 % (37.0-47.0); Hemoglobin 9.4 g/dL (11.5-15.3); Lymphocytes # 0.4 10^3/uL (0.8-4.8); Lymphocytes % 8.1 %; Mean Corpuscular HGB Conc 31.5 g/dL (30.0-36.0); Mean Platelet Volume 9.9 fL (7.4-10.4); Monocytes # 0.5 10^3/uL (0.2-0.9); Monocytes % 10.5 %; Neutrophils # 3.27 10^3/uL (1.8-7.7); Neutrophils % 70.1 %; Nucleated Red Blood Cells % 0 %; Platelet Count 215 10^3/cmm (130-400); Red Blood Count 3.24 10^6/uL (4.1-5.3); Red Cell Distribution Width 15.1 % (12.1-15.1); White Blood Count 4.7 10^3/uL (4.0-10.0)
[2020-10-21 19:11] LABS: Slide Review Slide Review Perform
[2020-10-21 19:19] LABS: Lactate (Lactic Acid level) 0.6 mmol/L (0.5-2.2)
[2020-10-21 19:36] LABS: Alanine Aminotransferase 11 U/L (0-33); Albumin Level 3.7 g/dL (3.5-5.2); Alkaline Phosphatase 48 IU/L (35-105); Anion Gap 15.3 (5-19); Aspartate Amino Transferase 19 U/L (0-32); Blood Urea Nitrogen 32 mg/dL (8-23); C Reactive Protein 32.9 mg/L (0.0-4.9); Calcium 9.2 mg/dL (8.5-10.5); Carbon Dioxide 22 mmol/L (22-29); Chloride 101 mmol/L (98-107); Globulin 1.9 g/dL (1.3-4.6); Glucose 106 mg/dL (65-115); Lipase 8 U/L (13-60); Osmolality Calculated 285 mOsm/kg (285-295); Potassium 4.3 mmol/L (3.5-5.1); Sodium 134 mmol/L (136-145); Total Bilirubin 0.5 mg/dL (0.15-1.2); Total Protein 5.6 g/dL (6.6-8.7)
[2020-10-21] MEDS: cefdinir 300 MG CAPSULE PO (21:47)
[2020-10-21 23:07] VITALS: BP 153/81; PULSE 73; RESP 18; O2SAT 96
[2020-10-21 23:26] LABS: Urine Color Yellow (Yellow)
[2020-10-21 23:27] LABS: Bilirubin Urine Neg (Negative); Blood Urine 2+ (Negative); Glucose Urine UA Norm (Normal); Ketones Urine Negative (Negative); Leukocyte Esterase Urine Negative (Negative); Nitrate Urine Negative (Negative); Protein Urine 3+ (Negative); Specific Gravity, Urine 1.005 (1.005-1.030); Urine Appearance Clear (CLEAR); Urobilinogen Urine Norm (Negative); pH Urine 7 (5-7)
[2020-10-21 23:34] LABS: Add Urine Culture? Yes; Bacteria Urine 1+ /hpf; Other Sediment, Urine BUD YEAST W/HYPHAE; WBC Urine 0-4 /hpf (0-5)
[2020-10-23 13:44] LABS: Coronavirus Test Green County Not Detected
--- NOTE | 2020-10-23 16:38 | PC.NURSE ---
notified Pt of negative Covid results
== END 2020-10-21 23:06 | disposition home or self-care (01) ==
PROVIDERS: Emergency Provider Emergency Medicine; PCP Physician Assistant Medical
DX: R50.9 Fever, unspecified (principal); Z79.82 Long term (current) use of aspirin; I10 Essential (primary) hypertension; Z85.51 Personal history of malignant neoplasm of bladder; Z94.0 Kidney transplant status; Z87.891 Personal history of nicotine dependence
CPT/HCPCS: 71045; 74176; 80053; 81001; 83605; 83690; 84145; 85025; 86140; 87040; 87086; 87635; 99283

== ENCOUNTER 2020-12-23 14:11 | Emergency (ER) | payer MEDICARE, BC, SELFPAY ==
[2020-12-23 14:22] VITALS: BP 206/97; PULSE 77; RESP 18; TEMP 36.7; O2SAT 98; BMI 32.5
--- NOTE | 2020-12-23 14:43 | XRR_ITS ---
PROCEDURE INFORMATION: Exam: XR Chest Exam date and time: 12/23/2020 2:43 PM Age: 75 years old Clinical indication: Cough and dyspnea; Additional info: Dyspnea/cough TECHNIQUE: Imaging protocol: XR of the chest. Views: 1 view. Total images: 1 COMPARISON: CR XR chest 1V portable [id number] 10/21/2020 6:47 PM FINDINGS: Lungs: No visible active interstitial or alveolar airspace disease. Pleural spaces: Unremarkable. No pleural effusion. No pneumothorax. Heart/Mediastinum: Cardiac structures and configuration with arteriosclerosis. Bones/joints: Advanced primary osteoarthritis of the shoulders, left greater right. XR/XR chest 1V portable [id number] IMPRESSION: Nonacute.
--- NOTE | 2020-12-23 14:43 | ECG_ITS ---
[facility] Test Date: 2020-12-23 Pat Name: Miranda Zee Department: Room: Gender: Female Optical Assistant: : 1945 Requested By: Yosi Navarro Order Number: [id number] Reading MD: Virginia Javed M.D. Measurements Intervals Herman Rate: 66 P: 40 HI: 183 QRS: -2 QRSD: 90 T: 38 QT: 374 QTc: 392 Interpretive Statements SINUS RHYTHM POSSIBLE LEFT ATRIAL ENLARGEMENT [-0.1mV P WAVE IN V1/V2] POSSIBLE LEFT VENTRICULAR HYPERTROPHY [VOLTAGE CRITERIA PLUS LAE OR QRS WIDENING] INFERIOR MYOCARDIAL INFARCTION [40+ ms Q WAVE AND/OR ST/T ABNORMALITY IN II/aVF], OF INDETERMINATE AGE Compared to ECG 07/31/2020 20:29:05 No significant changes Electronically Signed On 12-23-2020 20:22:25 CDT by Virginia Javed M.D. [id number]
--- NOTE | 2020-12-23 14:52 | W.ED.GENADLT ---
HPI - General Adult General: Chief complaint: General Medical Stated complaint: High BP; hx of kidney transplant Time Seen by Provider: 12/23/20 14:35 History of Present Illness: HPI narrative: 75-year-old female presents emergency room with complaints of elevated blood pressure. She has a history of renal transplant. She taken several medications today including medicines that are actually on her allergy list. Such as beta-blockers and calcium channel blockers. Renal transplant was due to ureteral reflux. Onset (ago): hour(s) Severity: moderate Relieving factors: none Exacerbating factors: none Associated symptoms: Deny chest pain, confusion, cough, diaphoresis, decreased appetite, dyspnea, fevers/chills, headache(s), malaise, nausea, rash, palpitations, seizures, short of breath, syncope, vomiting or weakness Treatments prior to arrival: other (Patient is taking regular prescribed blood pressure medicines) Review of Systems Const: Denies: malaise or diaphoresis ENMT: Denies: throat pain, ear or mastoid pain, nasal discharge or nasal congestion Card: Denies: chest pain, palpitations or syncope Resp: Denies: dyspnea GI: Denies: nausea or vomiting : Denies: flank pain, difficulty voiding, dysuria, urinary frequency or urinary urgency Skin/Breast: Denies: rash Neuro: Denies: headache(s) or confusion PFSH ED PFSH: Medical History Chronic kidney disease States that she follows up with Dr. Garcia who is her multimedia authoring specialist to come down from [place] to [place] and she sees him once a month. She states that she receives dialysis every day and has been doing this since 2018. 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 On routine surveillance cystosc Nocturnal polyuria No severe polyuria during the daytime. He has significant polyuria at night related to mobilization of lower extremity edema. 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 History of transurethral destruction of bladder lesion Kidney transplanted S/P cholecystectomy Laparoscopic procedure at the age of 63 S/P hip replacement Bilateral hip replacement in her 60s S/P hysterectomy With bilateral salpingo-oophorectomy---->1977 -- uterine fibroid tumors, no cancer. [place]-----> done via an abdominal incision. Bilateral ovaries were removed at the same S/P knee replacement Bilateral knee replacement in her 60s secondary to arthritis Status post surgery Neopcystoureterostomy, Some sort of surgery done-patient is not sure about details of surgery Family History Mother Brain tumor of same at age 46 Grandmother Stroke maternal Father Aneurysm from rupture at age 64 Grandfather Colon cancer maternal Denies family history of Ovarian cancer Diabetes Heart disease Hyperlipidemia Breast cancer Uterine cancer Thyroid condition Social History Smoking and tobacco status: former smoker Alcohol intake: never Marital status: / Current occupational status: retired History of recent travel: No Additional social history: - Tobacco Use: Started smoking in her 30s and smoked up to 1/2 pack per day for approximately 15 years before she quit. Denies any use since then. 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) Physical Exam Const: COMMON NORMALS: no acute distress GENERAL APPEARANCE: cooperative and comfortable ORIENTATION/CONSCIOUSNESS: Yes awake, Yes oriented to person, Yes oriented to place and Yes oriented to time HENMT: COMMON NORMALS: normocephalic, atraumatic, hearing grossly normal bilaterally and external ears normal HEAD & SCALP: normocephalic and atraumatic EXTERNAL EAR: Yes external ears normal Neck/C-Spine: COMMON NORMALS: no JVD Lymph: LYMPHATIC: no lymphadenopathy noted and no lymphedema noted Resp: COMMON NORMALS: normal respiratory effort, No retractions, No use of accessory muscles and clear to auscultation bilaterally AUSCULTATION: clear to auscultation bilaterally Cardio: COMMON NORMALS: no JVD, regular rate, regular rhythm and No murmurs present (Cardio) RATE: regular rate RHYTHM: regular rhythm GI: COMMON NORMALS: Soft to palpation and No hepatosplenomegaly present AUSCULTATION: Yes normoactive bowel sounds PALPATION: Yes Soft to palpation, No Tenderness to palpation present (GI), No Guarding due to palpation present (GI) and Yes No hepatosplenomegaly present OTHER: Wound is healing well except for a small area on the upper portion incision where there is some packing there is no erythema no drainage at this time. Transplant kidney palpable without tenderness. Extremity: COMMON NORMALS: normal to inspection, capillary refill normal, no clubbing, cyanosis or edema, no calf tenderness and no pedal edema Neuro: SENSORIUM/ORIENTATION: Yes oriented to person, Yes oriented to place and Yes oriented to time Skin: COMMON NORMALS: no rashes or lesions noted GENERAL SKIN EXAM: no rashes or lesions noted Course Vital Signs: Vital signs: Vital Signs Temperature 98.0 F 12/23/20 14:22 Pulse Rate 66 12/23/20 14:56 Respiratory Rate 16 12/23/20 14:56 Blood Pressure 164/78 12/23/20 17:28 Pulse Oximetry 98 12/23/20 14:56 MDM - General Adult MDM Narrative: Medical decision making narrative: Laboratory tests look good blood pressure improved for any increase her amlodipine to 5 mg daily previously she actually had hypotension on the amlodipine. She could do another 2-1/2 and go to 7-1/2 a day for blood pressure elevated tomorrow in 2 days with her to follow-up with her primary care doctor to reevaluate her blood pressure if persistently elevated before then can return she is already essentially maxed on losartan carvedilol given the history with the amlodipine would titrate that up at this point. Her renal function is about her baseline slightly elevated but still persistent at her normal range. Lab Data: Labs: Lab Results 12/23/20 12/23/20 12/23/20 Range/Units 15:14 15:14 15:14 WBC 6.0 (4.0-10.0) 10^3/ uL RBC 3.83 L (4.1-5.3) 10^6/u L Hgb 11.4 L (11.5-15.3) g/dL Hct 35.3 L (37.0-47.0) % MCV 92.2 (81-99) fL MCH 29.8 (28.0-34.0) pg MCHC 32.3 (30.0-36.0) g/dL RDW 14.5 (12.1-15.1) % Plt Count 279 (130-400) 10^3/c mm MPV 10.3 (7.4-10.4) fL Neut % (Auto) 68.2 % Lymph % (Auto) 16.7 % [place] % (Auto) 11.8 % Eos % (Auto) 2.3 % Baso % (Auto) 1.0 % Neut # (Auto) 3.63 (1.8-7.7) 10^3/u L Lymph # (Auto) 1.0 (0.8-4.8) 10^3/u L [place] # (Auto) 0.7 (0.2-0.9) 10^3/u L Eos # (Auto) 0.1 (0.0-0.8) 10^3/u L Baso # (Auto) 0.1 (0.0-0.1) 10^3/u L Nucleated RBC % (a uto) 0 % Nucleated RBCs # 0.0 /100WBC Sodium 139 (136-145) mmol/L Potassium 4.2 (3.5-5.1) mmol/L Chloride 104 (98-107) mmol/L Carbon Dioxide 22 (22-29) mmol/L Anion Gap 17.2 (5-19) BUN 52 H (8-23) mg/dL Creatinine 2.8 H (0.5-0.9) mg/dL GFR Calculation Not Reportable Glucose 102 (65-115) mg/dL Calculated Osmolal ity 302 H (285-295) mOsm/k g Calcium 10.0 (8.5-10.5) mg/dL Magnesium 2.2 (1.7-2.3) mg/dL Total Bilirubin 0.4 (0.15-1.2) mg/dL AST 16 (0-32) U/L ALT 13 (0-33) U/L Alkaline Phosphata se 57 (35-105) IU/L Creatine Kinase 38 (26-192) U/L Troponin T Baselin e 53 H (0-10) ng/L Troponin T 120 Min shane (0-10) ng/L Delta Troponin T (0-10) ABS# Total Protein 5.9 L (6.6-8.7) g/dL Albumin 4.2 (3.5-5.2) g/dL Globulin 1.7 (1.3-4.6) g/dL Urine Color (Yellow) Urine Appearance (CLEAR) Urine pH (5-7) Ur Specific Gravit y (1.005-1.030) Urine Protein (Negative) Urine Glucose (UA) (Normal) Urine Ketones (Negative) Urine Blood (Negative) Urine Nitrate (Negative) Urine Bilirubin (Negative) Urine Urobilinogen (Negative) mg/dL Ur Leukocyte Nilsa ase (Negative) Urine RBC (0-2) /hpf Urine WBC (0-5) /hpf Ur Squamous Epith Cells (0-5) /hpf Amorphous Sediment Urine Bacteria (NONE) /hpf 12/23/20 12/23/20 Range/Units 15:42 17:13 WBC (4.0-10.0) 10^3/ uL RBC (4.1-5.3) 10^6/u L Hgb (11.5-15.3) g/dL Hct (37.0-47.0) % MCV (81-99) fL MCH (28.0-34.0) pg MCHC (30.0-36.0) g/dL RDW (12.1-15.1) % Plt Count (130-400) 10^3/c mm MPV (7.4-10.4) fL Neut % (Auto) % Lymph % (Auto) % [place] % (Auto) % Eos % (Auto) % Baso % (Auto) % Neut # (Auto) (1.8-7.7) 10^3/u L Lymph # (Auto) (0.8-4.8) 10^3/u L [place] # (Auto) (0.2-0.9) 10^3/u L Eos # (Auto) (0.0-0.8) 10^3/u L Baso # (Auto) (0.0-0.1) 10^3/u L Nucleated RBC % (a uto) % Nucleated RBCs # /100WBC Sodium (136-145) mmol/L Potassium (3.5-5.1) mmol/L Chloride (98-107) mmol/L Carbon Dioxide (22-29) mmol/L Anion Gap (5-19) BUN (8-23) mg/dL Creatinine (0.5-0.9) mg/dL GFR Calculation Glucose (65-115) mg/dL Calculated Osmolal ity (285-295) mOsm/k g Calcium (8.5-10.5) mg/dL Magnesium (1.7-2.3) mg/dL Total Bilirubin (0.15-1.2) mg/dL AST (0-32) U/L ALT (0-33) U/L Alkaline Phosphata se (35-105) IU/L Creatine Kinase (26-192) U/L Troponin T Baselin e (0-10) ng/L Troponin T 120 Min shane 52.51 H (0-10) ng/L Delta Troponin T -0.49 L (0-10) ABS# Total Protein (6.6-8.7) g/dL Albumin (3.5-5.2) g/dL Globulin (1.3-4.6) g/dL Urine Color Straw (Yellow) Urine Appearance Clear (CLEAR) Urine pH 6 (5-7) Ur Specific Gravit y 1.010 (1.005-1.030) Urine Protein 1+ H (Negative) Urine Glucose (UA) Norm (Normal) Urine Ketones Negative (Negative) Urine Blood Neg (Negative) Urine Nitrate Negative (Negative) Urine Bilirubin Neg (Negative) Urine Urobilinogen Norm (Negative) mg/dL Ur Leukocyte Nilsa ase Negative (Negative) Urine RBC None (0-2) /hpf Urine WBC Rare (0-5) /hpf Ur Squamous Epith Cells 0-4 H (0-5) /hpf Amorphous Sediment Not Reportable Urine Bacteria Trace (NONE) /hpf Discharge Plan Discharge Patient Disposition: Home Clinical Impression: HTN (hypertension), benign, Kidney transplanted Condition: Stable Prescriptions: Changed amlodipine 2.5 mg tablet 5 mg PO DAILY@0900 Qty: 0 RF: 0 No Action acetaminophen [Tylenol] 325 mg capsule 650 mg PO PRN RF: 0 pravastatin 10 mg tablet 10 mg PO BEDTIME@2200 RF: 0 bupropion HCl 150 mg tablet extended release 24 hr 150 mg PO DAILY@0900 RF: 0 Zyrtec 10 mg capsule 5 - 10 mg PO DAILY PRN (Reason: Allergy Symptoms) RF: 0 losartan 100 mg tablet 100 mg PO DAILY@0900 RF: 0 carvedilol 25 mg Tablet 25 mg PO BID@0900,1700 RF: 0 sodium bicarbonate 650 mg Tablet 650 mg PO BID RF: 0 pantoprazole 40 mg Tablet,Delayed Release (Dr/Ec) 40 mg PO DAILY@0900 RF: 0 aspirin 81 mg Tablet,Chewable 81 mg PO DAILY@0900 RF: 0 zolpidem [Ambien] 5 mg Tablet 5 mg PO BEDTIME@2200 PRN (Reason: Sleep) RF: 0 atovaquone 750 mg/5 mL Suspension 750 mg PO DAILY@1700 RF: 0 ondansetron HCl 4 mg tablet 4 mg PO TID PRN (Reason: Nausea And Vomiting) RF: 0 prednisone 5 mg Tablet 5 mg PO DAILY@0900 RF: 0 furosemide 80 mg tablet 80 mg PO DAILY@0900 RF: 0 cholecalciferol (vitamin D3) 50 mcg (2,000 unit) capsule 50 mcg PO DAILY@0900 RF: 0 tizanidine 2 mg tablet 2 mg PO BEDTIME@2200 RF: 0 Oysco 500/D 500 mg(1,250mg) -200 unit tablet 1 tab PO BID@0900,1700 RF: 0 Discharge Orders: Discharge ED (Routine); Ordered 12/23/20 Ordered By: Yosi Garcia Referrals: Navin Paulson [Primary Care Provider] - Discharge Diet: Usual diet Discharge Activity: Increase activity as tolerated Patient Instructions: Opioid Safety Activity Restrictions/Additional Instructions: Recheck blood pressure in 2 days with your primary care doctor to reevaluate level of control Coding Level of Care Code ED Sole Stitcher Hand for Winifred Fwd Exam Comprehensive
[2020-12-23 14:56] VITALS: BP 206/86; PULSE 66; RESP 16; O2SAT 98
[2020-12-23] MEDS: hyDRALAzine 20 mg/mL INJ 1 mL IVP (15:10)
[2020-12-23] MEDS: amlodipine 5 mg Tablet PO (15:21)
[2020-12-23 15:22] LABS: Basophils # 0.1 10^3/uL (0.0-0.1); Eosinophils # 0.1 10^3/uL (0.0-0.8); Eosinophils % 2.3 %; Hematocrit 35.3 % (37.0-47.0); Hemoglobin 11.4 g/dL (11.5-15.3); Lymphocytes % 16.7 %; Mean Corpuscular HGB Conc 32.3 g/dL (30.0-36.0); Mean Corpuscular Hemoglobin 29.8 pg (28.0-34.0); Mean Corpuscular Volume 92.2 fL (81-99); Mean Platelet Volume 10.3 fL (7.4-10.4); Monocytes # 0.7 10^3/uL (0.2-0.9); Monocytes % 11.8 %; Neutrophils # 3.63 10^3/uL (1.8-7.7); Nucleated Red Blood Cells % 0 %; Platelet Count 279 10^3/cmm (130-400); Red Blood Count 3.83 10^6/uL (4.1-5.3); Red Cell Distribution Width 14.5 % (12.1-15.1)
[2020-12-23 15:23] VITALS: BP 195/87
[2020-12-23 15:48] LABS: Alanine Aminotransferase 13 U/L (0-33); Albumin Level 4.2 g/dL (3.5-5.2); Alkaline Phosphatase 57 IU/L (35-105); Anion Gap 17.2 (5-19); Aspartate Amino Transferase 16 U/L (0-32); Blood Urea Nitrogen 52 mg/dL (8-23); Carbon Dioxide 22 mmol/L (22-29); Chloride 104 mmol/L (98-107); Creatine Phosphokinase 38 U/L (26-192); Globulin 1.7 g/dL (1.3-4.6); Glucose 102 mg/dL (65-115); Magnesium 2.2 mg/dL (1.7-2.3); Osmolality Calculated 302 mOsm/kg (285-295); Potassium 4.2 mmol/L (3.5-5.1); Sodium 139 mmol/L (136-145); Total Bilirubin 0.4 mg/dL (0.15-1.2); Total Protein 5.9 g/dL (6.6-8.7); Troponin(5th) Baseline 53 ng/L (0-10)
[2020-12-23 15:56] LABS: Add Urine Microscopic? YES; Bilirubin Urine Neg (Negative); Blood Urine Neg (Negative); Glucose Urine UA Norm (Normal); Ketones Urine Negative (Negative); Leukocyte Esterase Urine Negative (Negative); Nitrate Urine Negative (Negative); Protein Urine 1+ (Negative); Urine Appearance Clear (CLEAR); Urine Color Straw (Yellow); Urobilinogen Urine Norm (Negative); pH Urine 6 (5-7)
[2020-12-23 15:57] LABS: Add Urine Culture? No; Bacteria Urine TRACE /hpf; Squamous Epithelial Cell Urine 0-4 /hpf (0-5); WBC Urine RARE /hpf (0-5)
[2020-12-23 16:17] LABS: Neutrophils % 68.2 %
[2020-12-23 16:38] LABS: Slide Review Slide Review Perform
--- NOTE | 2020-12-23 16:43 | ECG_ITS ---
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 Measurements Intervals [place] Rate: 76 P: 35 CA: 187 QRS: -4 QRSD: 90 T: 24 QT: 363 QTc: 409 Interpretive Statements SINUS RHYTHM POSSIBLE LEFT ATRIAL ENLARGEMENT [-0.1mV P WAVE IN V1/V2] POSSIBLE LEFT VENTRICULAR HYPERTROPHY [VOLTAGE CRITERIA PLUS LAE OR QRS WIDENING] POSSIBLE ANTERIOR MYOCARDIAL INFARCTION [30 ms Q WAVE IN V3/V4, OR R < 0.2 mV IN V4], OF INDETERMINATE AGE INFERIOR MYOCARDIAL INFARCTION [40+ ms Q WAVE AND/OR ST/T ABNORMALITY IN II/aVF], OF INDETERMINATE AGE Compared to ECG 12/23/2020 15:10:25 No significant changes Electronically Signed On 12-23-2020 23:09:47 CDT by Virginia Javed M.D. [id number]
[2020-12-23 17:28] VITALS: BP 164/78
[2020-12-23 17:44] LABS: Troponin 5 2HR 52.51 ng/L (0-10)
[2020-12-23 17:45] LABS: Troponin 5 2HR Delta -0.49 ABS# (0-10)
== END 2020-12-23 17:29 | disposition home or self-care (01) ==
PROVIDERS: Emergency Provider Family Medicine; PCP Physician Assistant Medical
DX: I10 Essential (primary) hypertension (principal); Z94.0 Kidney transplant status; Z79.82 Long term (current) use of aspirin; Z85.51 Personal history of malignant neoplasm of bladder; Z87.891 Personal history of nicotine dependence
CPT/HCPCS: 36415; 71045; 80053; 81001; 82550; 83735; 84484; 85025; 93005; 96374; 99284; J0360

== ENCOUNTER 2021-07-12 14:01 | Outpatient (CLI) | payer MEDICARE, BC, SELFPAY ==
--- NOTE | 2021-07-12 14:14 | MM_ITS ---
WS: [id number] BILATERAL DIGITAL SCREENING MAMMOGRAPHY WITH CAD CLINICAL INFORMATION: SCREENING HISTORY: Screening mammogram. No current complaints. COMPARISON: December 01, 2018 TECHNIQUE: Bilateral CC and MLO views. FINDINGS: The breasts are composed of heterogeneous fibroglandular density tissue, which can limit the detectio n of small underlying mass lesions. Vascular calcification. No suspicious mass, asymmetry, calcificat ions, or architectural distortion. No evidence of malignancy. MM/[place] [id number] IMPRESSION: BI-RADS: 2-Benign FOLLOW UP: 1 Year Follow-up Recommend return to annual screening mammography.
== END 2021-07-12 14:02 | disposition home or self-care (01) ==
LOC: RADSHAW 14:09
PROVIDERS: PCP Physician Assistant Medical; Visit Provider Nurse Practitioner Family
DX: Z12.31 Encounter for screening mammogram for malignant neoplasm of breast (principal)
CPT/HCPCS: 77067

== ENCOUNTER → 2021-07-31 13:11 | Outpatient (BNVA) | payer MEDICARE, BC, SELFPAY | PROVIDERS: PCP Nurse Practitioner Family; Visit Provider Urology | DX: C67.8 Malignant neoplasm of overlapping sites of bladder (principal) | CPT/HCPCS: 81003 ==

== ENCOUNTER 2021-08-20 17:20 | Inpatient (IN) | payer MEDICARE, BC, SELFPAY ==
[2021-08-20 17:37] VITALS: BP 159/75; PULSE 80; RESP 34; TEMP 37.3; O2SAT 87; BMI 33.1
--- NOTE | 2021-08-20 17:39 | XRR_ITS ---
PROCEDURE INFORMATION: Exam: XR Chest Exam date and time: 08/20/2021 5:39 PM Age: 76 years old Clinical indication: Shortness of breath; Additional info: SOB TECHNIQUE: Imaging protocol: XR of the chest. Views: 1 view. COMPARISON: No relevant prior studies available. FINDINGS: Lungs: No focal airspace consolidation. Mild increase in interstitial lung markings. Pleural spaces: Unremarkable. No pleural effusion. No pneumothorax. Heart/Mediastinum: Cardiomegaly. Vasculature: Calcified plaques of abdominal aorta. Bones/joints: Severe degenerative joint changes both shoulders. XR/XR chest 1V portable [id number] IMPRESSION: 1. Cardiomegaly. 2. No focal pneumonia. 3. Mild interstitial prominence; cannot exclude interstitial edema.
--- NOTE | 2021-08-20 17:39 | ECG_ITS ---
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 Measurements Intervals [place] Rate: 82 P: 72 MD: 170 QRS: 59 QRSD: 71 T: 86 QT: 320 QTc: 375 Interpretive Statements SINUS RHYTHM Compared to ECG 12/23/2020 16:26:09 Myocardial infarct finding still present Electronically Signed On 08-21-2021 17:14:33 CHART CLERK by Richard Chatterjee M.D. [id number]
[2021-08-20 18:14] LABS: Basophils % 0.1 %; Hematocrit 37.8 % (37.0-47.0); Hemoglobin 11.9 g/dL (11.5-15.3); Lymphocytes # 0.6 10^3/uL (0.8-4.8); Lymphocytes % 8.1 %; Mean Corpuscular HGB Conc 31.5 g/dL (30.0-36.0); Mean Corpuscular Hemoglobin 29.5 pg (28.0-34.0); Mean Corpuscular Volume 93.6 fl (81-99); Mean Platelet Volume 9.3 fL (7.4-10.4); Monocytes # 0.4 10^3/uL (0.2-0.9); Monocytes % 5.3 %; Neutrophils # 6.31 10^3/uL (1.8-7.7); Neutrophils % 84.2 %; Nucleated Red Blood Cells % 0 %; Platelet Count 296 10^3/cmm (130-400); Red Blood Count 4.04 10^6/uL (4.1-5.3); Red Cell Distribution Width 14.3 % (12.1-15.1); White Blood Count 7.5 10^3/uL (4.0-10.0)
[2021-08-20 18:24] VITALS: BP 147/79; PULSE 83; RESP 20; O2SAT 94
--- NOTE | 2021-08-20 18:33 | W.ED.SOB ---
HPI - SOB/Dyspnea General: Chief Complaint: Shortness of Breath/Dyspnea Stated Complaint: SOB; cough; COVID+ a couple of weeks ago Time Seen by Provider: 08/20/21 18:21 Source: patient Mode of arrival: ambulatory Limitations: no limitations History of Present Illness: HPI Narrative: 76-year-old female who states she had Covid little over 1 month ago and her symptoms resolved and she been doing well. States that over the last 3 to 5 days she is started having increasing cough fever and shortness of breath. Patient was hypoxic here and is currently on 3 L and she is not had any oxygen at baseline with her previous Covid. She states that she feels short of breath and is having a productive cough she does have tachypnea here. She is a history of chronic kidney disease she had a kidney transplant over a year ago. Denies any chest pain. Associated symptoms: Reports fever(s); Deny abdominal pain, chest pain, nausea or vomiting Review of Systems Const: Reports: fever(s), chills and body aches Eyes: Denies: blurry vision or eye discomfort ENMT: Denies: throat pain or dental pain Card: Denies: chest pain Resp: Reports: dyspnea, productive cough and wheezing GI: Denies: abdominal pain, nausea, vomiting or diarrhea : Denies: dysuria Musc: Denies: neck pain or back pain Skin/Breast: Denies: rash Neuro: Denies: headache(s) Psych: Denies: depression Enrique/Lymph: Denies: easy bruising All/Imm: Denies: urticaria PFS ED PFSH: Medical History Chronic kidney disease States that she follows up with Dr. Garcia who is her scallop cutter to come down from [place] to [place] and she sees him once a month. She states that she receives dialysis every day and has been doing this since 2018. 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 On routine surveillance cystosc Nocturnal polyuria No severe polyuria during the daytime. He has significant polyuria at night related to mobilization of lower extremity edema. 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 History of transurethral destruction of bladder lesion Kidney transplanted S/P cholecystectomy Laparoscopic procedure at the age of 63 S/P hip replacement Bilateral hip replacement in her 60s S/P hysterectomy With bilateral salpingo-oophorectomy---->1977 -- uterine fibroid tumors, no cancer. [place]-----> done via an abdominal incision. Bilateral ovaries were removed at the same S/P knee replacement Bilateral knee replacement in her 60s secondary to arthritis Status post surgery Neopcystoureterostomy, Some sort of surgery done-patient is not sure about details of surgery Family History Mother Brain tumor of same at age 46 Grandmother Stroke maternal Father Aneurysm from rupture at age 64 Grandfather Colon cancer maternal Denies family history of Ovarian cancer Diabetes Heart disease Hyperlipidemia Breast cancer Uterine cancer Thyroid condition Social History Smoking and tobacco status: former smoker Alcohol intake: never Marital status: / Current occupational status: retired History of recent travel: No Additional social history: - Tobacco Use: Started smoking in her 30s and smoked up to 1/2 pack per day for approximately 15 years before she quit. Denies any use since then. 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) Physical Exam Const: COMMON NORMALS: patient oriented x3 and healthy appearing GENERAL APPEARANCE: in distress and ill appearing HENMT: COMMON NORMALS: normocephalic and atraumatic HEAD & SCALP: normocephalic and atraumatic Eye: COMMON NORMALS: Equal, round and reactive pupils present and EOMs intact bilaterally PUPIL: Yes Equal, round and reactive pupils present Neck/C-Spine: COMMON NORMALS: full ROM and supple Chest: COMMONS NORMALS: normal inspection of the chest and normal palpation of entire chest wall Resp: COMMON NORMALS: No retractions EFFORT & INSPECTION: Yes tachypneic and Yes respiratory distress AUSCULTATION: rales and wheezes Cardio: COMMON NORMALS: regular rate, regular rhythm and No murmurs present (Cardio) RATE: regular rate RHYTHM: regular rhythm GI: COMMON NORMALS: Normal to inspection, nondistended, normoactive bowel sounds present, Soft to palpation, non-tender and no masses PALPATION: Yes Soft to palpation Extremity: COMMON NORMALS: normal to inspection and full ROM Neuro: COMMON NORMALS: patient oriented x3, moves all extremities and no focal motor deficits Psych: COMMON NORMALS: mental status grossly normal, Normal thought process present and cooperative THOUGHT PROCESS: Normal thought process present Skin: COMMON NORMALS: no rashes or lesions noted and no wounds GENERAL SKIN EXAM: no rashes or lesions noted Course Vital Signs: Vital signs: Vital Signs Temperature 99.1 F 08/20/21 17:37 Pulse Rate 91 08/20/21 20:20 Respiratory Rate 18 08/20/21 20:20 Blood Pressure 147/79 08/20/21 18:24 Pulse Oximetry 93 08/20/21 20:20 MDM - SOB/Dyspnea Medical Decision Making Patient presents here with cough requiring oxygen along with fever x-ray showed no obvious pneumonia but she does have rales also slightly elevated creatinine from her baseline and elevated BNP she does have a history of a kidney plant transplant 1 year ago give her IV antibiotics will admit as well spoke to hospitalist. Lab Data : 08/20/21 18:05 08/20/21 18:05 Labs/Radiology: Radiology Impressions Chest X-Ray 08/20/21 17:39 IMPRESSION: 1. Cardiomegaly. 2. No focal pneumonia. 3. Mild interstitial prominence; cannot exclude interstitial edema. Laboratory Results WBC 7.5 10^3/uL (4.0-10.0) 08/20/21 18:05 RBC 4.04 10^6/uL (4.1-5.3) L 08/20/21 18:05 Hgb 11.9 g/dL (11.5-15.3) 08/20/21 18:05 Hct 37.8 % (37.0-47.0) 08/20/21 18:05 MCV 93.6 fl (81-99) 08/20/21 18:05 MCH 29.5 pg (28.0-34.0) 08/20/21 18:05 MCHC 31.5 g/dL (30.0-36.0) 08/20/21 18:05 RDW 14.3 % (12.1-15.1) 08/20/21 18:05 Plt Count 296 10^3/cmm (130-400) 08/20/21 18:05 MPV 9.3 fL (7.4-10.4) 08/20/21 18:05 Neut % (Auto) 84.2 % 08/20/21 18:05 Lymph % (Auto) 8.1 % 08/20/21 18:05 [place] % (Auto) 5.3 % 08/20/21 18:05 Eos % (Auto) 0.0 % 08/20/21 18:05 Baso % (Auto) 0.1 % 08/20/21 18:05 Neut # (Auto) 6.31 10^3/uL (1.8-7.7) 08/20/21 18:05 Lymph # (Auto) 0.6 10^3/uL (0.8-4.8) L 08/20/21 18:05 [place] # (Auto) 0.4 10^3/uL (0.2-0.9) 08/20/21 18:05 Eos # (Auto) 0.0 10^3/uL (0.0-0.8) 08/20/21 18:05 Baso # (Auto) 0.0 10^3/uL (0.0-0.1) 08/20/21 18:05 Nucleated RBC % (auto) 0 % 08/20/21 18:05 Nucleated RBCs # 0.0 /100WBC 08/20/21 18:05 D-Dimer 1.03 ug/mIFEU (0-0.59) H 08/20/21 19:52 Sodium 137 mmol/L (136-145) 08/20/21 18:05 Potassium 5.2 mmol/L (3.5-5.1) H 08/20/21 18:05 Chloride 106 mmol/L (98-107) 08/20/21 18:05 Carbon Dioxide 16 mmol/L (22-29) L 08/20/21 18:05 Anion Gap 20.2 (5-19) H 08/20/21 18:05 BUN 49 mg/dL (8-23) H 08/20/21 18:05 Creatinine 3.6 mg/dL (0.5-0.9) H 08/20/21 18:05 GFR Calculation Not Reportable 08/20/21 18:05 Glucose 83 mg/dL (65-115) 08/20/21 18:05 Calculated Osmolality 296 mOsm/kg (285-295) H 08/20/21 18:05 Lactic Acid 1.0 mmol/L (0.5-2.2) 08/20/21 18:05 Calcium 10.1 mg/dL (8.5-10.5) 08/20/21 18:05 Total Bilirubin 0.2 mg/dL (0.15-1.2) 08/20/21 18:05 AST 23 U/L (0-32) 08/20/21 18:05 ALT 14 U/L (0-33) 08/20/21 18:05 Alkaline Phosphatase 62 IU/L (35-105) 08/20/21 18:05 Troponin T Baseline 98 ng/L (0-10) H 08/20/21 18:05 NT-Pro-B Natriuret Pep 4284 pg/mL (0-450) H 08/20/21 18:05 Total Protein 6.5 g/dL (6.6-8.7) L 08/20/21 18:05 Albumin 3.5 g/dL (3.5-5.2) 08/20/21 18:05 Globulin 3.0 g/dL (1.3-4.6) 08/20/21 18:05 EKG Data EKG 1: I personally reviewed and interpreted this EKG as follows: EKG Interpretation Date: 08/20/21 EKG interpretation time: 17:57 Interpretation: nsr hr [address] or t wave abnormalities qrs 71 qtc 359 EKG 2: I personally reviewed and interpreted this EKG as follows: EKG Interpretation Date: 08/20/21 EKG interpretation time: 19:15 Interpretation: nsr hr [address] or t wave abnormalities qrs 82 qtc 369 Discharge Plan Discharge Patient Disposition: Admitted As Inpatient Clinical Impression: Acute respiratory failure with hypoxemia Condition: Stable Coding Level of Care Code ED Vice President Digital Strategist for Chg Fwd Exam Comprehensive
[2021-08-20 18:53] LABS: Alanine Aminotransferase 14 U/L (0-33); Albumin Level 3.5 g/dL (3.5-5.2); Alkaline Phosphatase 62 IU/L (35-105); Anion Gap 20.2 (5-19); Aspartate Amino Transferase 23 U/L (0-32); Blood Urea Nitrogen 49 mg/dL (8-23); Calcium 10.1 mg/dL (8.5-10.5); Carbon Dioxide 16 mmol/L (22-29); Chloride 106 mmol/L (98-107); Glucose 83 mg/dL (65-115); NT Pro B Type Natriuretic Pept 4284 pg/mL (0-450); Osmolality Calculated 296 mOsm/kg (285-295); Potassium 5.2 mmol/L (3.5-5.1); Sodium 137 mmol/L (136-145); Total Bilirubin 0.2 mg/dL (0.15-1.2); Total Protein 6.5 g/dL (6.6-8.7)
--- NOTE | 2021-08-20 19:03 | ECG_ITS ---
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 Measurements Intervals [place] Rate: 88 P: 69 NH: 177 QRS: 32 QRSD: 82 T: 82 QT: 323 QTc: 392 Interpretive Statements SINUS RHYTHM Compared to ECG 08/20/2021 17:57:46 ST (T wave) deviation no longer present Myocardial infarct finding no longer present Electronically Signed On 08-21-2021 5:06:51 JUDICIAL REPORTER by Virginia Javed M.D. [id number]
[2021-08-20] MEDS: dexamethasone 10 mg/mL INJ IVP (19:07)
[2021-08-20] MEDS: sodium chloride 0.9% 1,000 ML 999 ML IV (19:07)
[2021-08-20 19:48] LABS: Troponin(5th) Baseline 98 ng/L (0-10)
[2021-08-20] MEDS: cefTRIAXone 1,000 MG in sodium chloride 0.9% (plus) 50 ML 100 MG IV (20:08)
[2021-08-20] MEDS: azithromycin 500 MG in sodium chloride 0.9% 250 ML 250 MG IV (20:14)
[2021-08-20 20:20] VITALS: PULSE 91; RESP 18; O2SAT 93
[2021-08-20] MEDS: ipratropium-albuterol 3 mL Neb INHALATION (20:20)
[2021-08-20 20:24] LABS: D Dimer 1.03 ug/mIFEU (0-0.59)
--- NOTE | 2021-08-20 20:58 | P.HP_ITS ---
Providers/Chief Complaint Primary Care Provider: Nelsy Palomino Chief Complaint: SOB; cough; COVID+ a couple of weeks ago History of Present Illness Miranda Zee is a 76 year old female with a past medical history of renal transplant etiology unclear, history of bladder cancer, history of chronic kidney disease, hypertension, hyperlipidemia, recent history of Covid infection roughly a month ago who presents [facility] for increasing cough, shortness of breath, fatigue, malaise, low-grade fevers. Patient tells me that she tested positive for Covid roughly a month ago, since then she continues to have post COVID symptoms including fatigue, malaise, shortness of breath with exertion, low-grade fevers, and pain increasingly nagging cough. She presented to urgent care on the due to the cough, was given azithromycin with promethazine with without improvement of symptoms. She recently presented to [facility] for her cough and shortness of breath, she tells me all the test that they did was negative, including a venous ultrasound, she tested negative for Covid on Friday there, they gave her a cough medication sent her home, but she continues to have cough. In the emergency room she is found to be on 3 L, she has been given Rocephin and azithromycin for pneumonia, hospitalist team was called for admission. Review of Systems Const: Reports: fever(s), chills, fatigue and malaise Eyes: Denies: change in vision or blurry vision ENMT: Denies: nasal congestion Card: Reports: dyspnea on exertion; Denies: chest pain, irregular heart rhythm or lightheadedness Resp: Reports: dyspnea and non-productive cough; Denies: productive cough or wheezing GI: Denies: abdominal pain, nausea, vomiting, hematemesis, diarrhea, constipation, hematochezia or melena : Denies: flank pain, dysuria or urinary frequency Musc: Denies: neck pain or back pain Skin/Breast: Denies: rash Neuro: Denies: headache(s) or dizziness Psych: Denies: anxiety Endo: Denies: polyuria or polydipsia Medications/Allergies Home Medications Medication Instructions Recorded Confirmed Last Taken Type acetaminophen 325 mg capsule 650 mg PO PRN 09/21/19 08/13/21 12/22/20 History (Tylenol) bupropion HCl 150 mg 24 hr tablet, 150 mg PO DAILY@0900 09/21/19 08/13/21 12/23/20 History extended release pravastatin 10 mg tablet 10 mg PO BEDTIME@2200 09/21/19 08/13/21 12/23/20 History aspirin 81 mg chewable tablet 81 mg PO DAILY@0900 06/28/20 08/13/21 12/23/20 History carvedilol 25 mg tablet 25 mg PO BID@0900,1700 06/28/20 08/13/21 12/23/20 History pantoprazole 40 mg tablet,delayed 40 mg PO DAILY@0900 06/28/20 08/13/21 12/23/20 History release sodium bicarbonate 650 mg tablet 650 mg PO BID 06/28/20 08/13/21 Unknown History cholecalciferol (vitamin D3) 50 50 mcg PO DAILY@0900 07/31/20 08/13/21 12/23/20 History mcg (2,000 unit) capsule furosemide 80 mg tablet 80 mg PO DAILY@0900 07/31/20 08/13/21 12/23/20 History prednisone 5 mg tablet 5 mg PO DAILY@0900 07/31/20 08/13/21 12/23/20 History losartan 100 mg tablet 100 mg PO DAILY@0900 10/25/20 08/13/21 12/23/20 History amlodipine 2.5 mg tablet 5 mg PO DAILY@0900 #0 tab 12/23/20 08/13/21 12/23/20 Rx calcium carbonate 500 mg (1,250 1 tab PO BID@0900,1700 12/23/20 08/13/21 12/23/20 History mg)-vitamin D3 200 unit tablet (Oysco 500/D) azithromycin 250 mg tablet See Rx Instructions PO .COMPLEX 5 08/13/21 08/13/21 Unknown Rx Days #6 tab promethazine 6.25 mg/5 mL oral 12.5 mg (10 mL) PO TID PRN 10 Days 08/13/21 08/13/21 Unknown Rx syrup #150 ml Allergies Allergy/AdvReac Type Severity Reaction Status Date / Time amitriptyline Allergy unknown Verified 08/13/21 11:48 desloratadine [From Clarinex] Allergy Unknown Verified 08/13/21 11:48 doxazosin [From Cardura] Allergy Unknown Verified 08/13/21 11:48 doxycycline Allergy Unknown Verified 08/13/21 11:48 escitalopram [From Lexapro] Allergy Unknown Verified 08/13/21 11:48 fluoxetine [From Prozac] Allergy Unknown Verified 08/13/21 11:48 hydrochlorothiazide Allergy unknown Verified 08/13/21 11:48 latex Allergy itching Verified 08/13/21 11:48 nifedipine [From Procardia] Allergy Unknown Verified 08/13/21 11:48 paroxetine [From Paxil] Allergy Unknown Verified 08/13/21 11:48 sertraline [From Zoloft] Allergy Unknown Verified 08/13/21 11:48 spironolactone Allergy Unknown Verified 08/13/21 11:48 Sulfa (Sulfonamide Allergy Unknown Verified 08/13/21 11:48 Antibiotics) sulfamethoxazole Allergy Unknown Verified 08/13/21 11:48 [From Bactrim] trimethoprim [From Bactrim] Allergy Unknown Verified 08/13/21 11:48 zolpidem [From Ambien] Allergy Unknown Verified 08/13/21 11:48 acetaminophen AdvReac tingling Verified 08/13/21 11:48 [From Tylenol PM] in the face adhesive tape AdvReac itching Verified 08/13/21 11:48 amlodipine AdvReac cough Verified 08/13/21 11:48 atenolol AdvReac cough Verified 08/13/21 11:48 diphenhydramine AdvReac tingling Verified 08/13/21 11:48 [From Tylenol PM] in the face guaifenesin [From Entex LA] AdvReac sinus Verified 08/13/21 11:48 pressure Iodinated Contrast Media AdvReac nausea Verified 08/13/21 11:48 lisinopril AdvReac cough Verified 08/13/21 11:48 metoprolol AdvReac cough Verified 08/13/21 11:48 penicillin G AdvReac passed out Verified 08/13/21 11:48 phenylephrine [From Entex LA] AdvReac sinus Verified 08/13/21 11:48 pressure phenylpropanolamine AdvReac sinus Verified 08/13/21 11:48 [From Entex LA] pressure trazodone AdvReac sinus Verified 08/13/21 11:48 pressure PFSH Acute PFSH: Medical History (Updated 08/20/21 @ 21:05 by Geovany Enciso MD) Chronic kidney disease States that she follows up with Dr. Garcia who is her urogynaecologist to come down from [place] to [place] and she sees him once a month. She states that she receives dialysis every day and has been doing this since 2018. 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 On routine surveillance cystosc Nocturnal polyuria No severe polyuria during the daytime. He has significant polyuria at night related to mobilization of lower extremity edema. 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 History of transurethral destruction of bladder lesion Kidney transplanted S/P cholecystectomy Laparoscopic procedure at the age of 63 S/P hip replacement Bilateral hip replacement in her 60s S/P hysterectomy With bilateral salpingo-oophorectomy---->1977 -- uterine fibroid tumors, no cancer. [facility], [place]-----> done via an abdominal incision. Bilateral ovaries were removed at the same S/P knee replacement Bilateral knee replacement in her 60s secondary to arthritis Status post surgery Neopcystoureterostomy, Some sort of surgery done-patient is not sure about details of surgery Family History Mother Brain tumor of same at age 46 Grandmother Stroke maternal Father Aneurysm from rupture at age 64 Grandfather Colon cancer maternal Denies family history of Ovarian cancer Diabetes Heart disease Hyperlipidemia Breast cancer Uterine cancer Thyroid condition Social History Smoking and tobacco status: former smoker Alcohol intake: never Marital status: / Current occupational status: retired History of recent travel: No Additional social history: - Tobacco Use: Started smoking in her 30s and smoked up to 1/2 pack per day for approximately 15 years before she quit. Denies any use since then. 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) Vitals/I&O/Wt Last Vital Signs Temp 99.1 F 08/20/21 17:37 Pulse 91 08/20/21 20:20 Resp 18 08/20/21 20:20 BP 147/79 08/20/21 18:24 Pulse Ox 93 08/20/21 20:20 08/20/21 08/20/21 08/20/21 06:59 14:59 22:59 Intake Total 50 / 50 Balance 50 / 50 Weight last 48 hrs Weight 87.543 kg Physical Exam Const: COMMON NORMALS: no acute distress and patient oriented x3 HENMT: COMMON NORMALS: normocephalic HEAD & SCALP: normocephalic Eye: COMMON NORMALS: Equal, round and reactive pupils present and EOMs intact bilaterally Neck/C-Spine: COMMON NORMALS: full ROM and no lymphadenopathy Lymph: LYMPHATIC: no lymphadenopathy noted Resp: COMMON NORMALS: normal respiratory effort, No retractions, No use of a ccessory muscles and clear to auscultation bilaterally AUSCULTATION: clear to auscultation bilaterally Cardio: COMMON NORMALS: regular rate, regular rhythm, S1 normal heart sound present and S2 normal heart sound present RATE: regular rate RHYTHM: regular rhythm HEART SOUNDS: S1 normal heart sound present and S2 normal heart sound present GI: COMMON NORMALS: Normal to inspection, nondistended, normoactive bowel sounds present, Soft to palpation, non-tender, No hepatosplenomegaly present, no masses and no bruits PALPATION: Yes Soft to palpation and Yes No hepatosplenomegaly present Extremity: COMMON NORMALS: capillary refill normal, no clubbing, cyanosis or edema and no pedal edema NARRATIVE EXTREMITY EXAM: has left calf pain Neuro: COMMON NORMALS: patient oriented x3 Psych: COMMON NORMALS: mental status grossly normal Skin: COMMON NORMALS: no rashes or lesions noted and no jaundice Data : 08/20/21 18:05 08/20/21 18:05 Micro: Microbiology 08/20/21 19:52 Blood Culture - Preliminary Blood SPECIMEN COLLECTED 08/20/21 18:05 Blood Culture - Preliminary Blood SPECIMEN COLLECTED A&P Assessment and plan (1) Hypoxia: Status: Acute (2) Kidney transplanted: Status: Acute (3) Malignant neoplasm of overlapping sites of bladder: Status: Acute (4) Hypertension: Status: Acute (5) Chronic kidney disease: Status: Acute (6) NSTEMI (non-ST elevated myocardial infarction): Status: Acute (7) History of COVID-19: Status: Acute Plan Hypoxia -Etiology unclear at this time -Possible underlying CHF, BNP is elevated at 4284, does have an expiratory wheezing -Possible pulmonary embolism associate with COVID-19, elevated D-dimer -No history of COPD, no history of smoking, does have an expiratory wheezing -Tested positive for Covid a month ago, retested at [facility] on Friday was negative Plan: -Continue 3 L -Respiratory therapy -DuoNeb, ipratropium -We will give 40 of Lasix, monitor urine output, monitor creatinine, potassium -Ventilation/perfusion scan -Venous ultrasound -Cardiac echocardiogram -Follow-up pro-Aydin, CRP -Follow blood cultures, sputum cultures, urine bacterial antigens -Has been given Rocephin and azithromycin in the emergency room, no focal infiltrates on chest x-ray, hold off on further antibiotics - Heparin for DVT prophylaxis -DNR/DNI NSTEMI -No chest pain complaints -Creatinine elevated -Baseline troponin 98 -EKG no acute ST-T wave changes -Serial troponins, serial EKGs, monitor troponin -Aspirin, statin Chronic kidney disease, history of transplanted kidney, history of nephrectomy, etiology unclear, follows up with nephrology at [place] -Baseline creatinine patient tells me is between 2 and 3 -Creatinine today 3.6 -Continue to monitor Hypertension, continue home meds Hyperlipidemia, continue home meds Potassium 5.2, Lasix Attestations Medical Necessity Statement*: Patient requires hospitalization, history of COVID-19, hypoxia, NSTEMI, CHF, TING, requiring inpatient admission, greater than 2 minutes Coding Level of Care Code Acute Train Director for Chg Fwd History Comprehensive Exam Comprehensive Medical Decision Making High Complexity Diagnoses Hypoxia R09.02 Kidney transplanted Z94.0 Malignant neoplasm of overlapping sites of bladder C67.8 Hypertension I10 Chronic kidney disease N18.9 NSTEMI (non-ST elevated myocardial infarction) I21.4 History of COVID-19 Z86.16 Time Spent (min) 55
--- NOTE | 2021-08-20 21:03 | ECG_ITS ---
[facility] Test Date: 2021-08-20 Pat Name: Miranda Zee Department: Room: 253 Gender: Female Vice Admiral: : 1945 Requested By: Jaclyn Wheat Order Number: [id number] Boy MD: Virginia Javed M.D. Measurements Intervals [place] Rate: 86 P: 73 ME: 170 QRS: 51 QRSD: 86 T: 82 QT: 343 QTc: 411 Interpretive Statements SINUS RHYTHM Compared to ECG 08/20/2021 19:15:50 No significant changes Electronically Signed On 08-21-2021 5:18:22 EXPERIMENTAL MACHINING LAB MANAGER by Virginia Javed M.D. [id number]
[2021-08-20 21:46] LABS: Troponin 5 2HR 76.11 ng/L (0-10)
[2021-08-20 22:32] LABS: C Reactive Protein 135.1 mg/L (0.0-4.9)
[2021-08-20 22:37] LABS: Procalcitonin 0.32 ng/mL (0-0.5)
[2021-08-20 22:41] VITALS: BMI 34.2
[2021-08-20] MEDS: FUROsemide 10 mg/mL SDV 4mL 40 MG IVP (23:15)
[2021-08-20] MEDS: heparin 5,000 unit/mL INJ 1 mL 5000 UNIT SUBCUT (23:15)
[2021-08-21] VITALS (14 sets, daily range): BP systolic 144–160; BP diastolic 67–76; PULSE 78–88; RESP 17–20; TEMP 36.4–36.8; O2SAT 90–94
--- NOTE | 2021-08-21 01:03 | ECG_ITS ---
[facility] Test Date: 2021-08-21 Pat Name: Miranda Zee Department: Room: 253 Gender: Female Campus Rep: : 1945 Requested By: Jaclyn Wheat Order Number: [id number] Boy MD: Richard Chatterjee M.D. Measurements Intervals [place] Rate: 86 P: 59 OR: 193 QRS: 19 QRSD: 78 T: 69 QT: 337 QTc: 403 Interpretive Statements SINUS RHYTHM Compared to ECG 08/20/2021 21:07:12 ST (T wave) deviation now present Myocardial infarct finding now present Electronically Signed On 08-21-2021 20:57:18 FEED GRINDER by Richard Chatterjee M.D. [id number]
[2021-08-21 01:06] LABS: Basophils % 0.2 %; Hematocrit 33.7 % (37.0-47.0); Hemoglobin 10.4 g/dL (11.5-15.3); Lymphocytes # 0.4 10^3/uL (0.8-4.8); Lymphocytes % 6.5 %; Mean Corpuscular HGB Conc 30.9 g/dL (30.0-36.0); Mean Corpuscular Hemoglobin 29.1 pg (28.0-34.0); Mean Corpuscular Volume 94.4 fl (81-99); Mean Platelet Volume 9.1 fL (7.4-10.4); Monocytes # 0.1 10^3/uL (0.2-0.9); Monocytes % 1.5 %; Neutrophils # 5.48 10^3/uL (1.8-7.7); Nucleated Red Blood Cells % 0 %; Platelet Count 269 10^3/cmm (130-400); Red Blood Count 3.57 10^6/uL (4.1-5.3); Red Cell Distribution Width 14.2 % (12.1-15.1); White Blood Count 6.2 10^3/uL (4.0-10.0)
[2021-08-21 01:21] LABS: Estmated Average Glucose 103; Hemoglobin A1C 5.2 % (4.0-6.0)
[2021-08-21 01:47] LABS: Troponin 5 6HR 77.69 ng/L (0-10)
[2021-08-21 01:54] LABS: Alanine Aminotransferase 13 U/L (0-33); Albumin Level 3.1 g/dL (3.5-5.2); Alkaline Phosphatase 59 IU/L (35-105); Anion Gap 19.2 (5-19); Aspartate Amino Transferase 23 U/L (0-32); Blood Urea Nitrogen 43 mg/dL (8-23); Calcium 8.5 mg/dL (8.5-10.5); Carbon Dioxide 14 mmol/L (22-29); Chloride 108 mmol/L (98-107); Globulin 2.5 g/dL (1.3-4.6); Glucose 102 mg/dL (65-115); Osmolality Calculated 293 mOsm/kg (285-295); Phosphorus 3.9 mg/dL (2.5-4.5); Potassium 5.2 mmol/L (3.5-5.1); Sodium 136 mmol/L (136-145); Total Bilirubin 0.2 mg/dL (0.15-1.2); Total Protein 5.6 g/dL (6.6-8.7)
[2021-08-21 01:55] LABS: NT Pro B Type Natriuretic Pept 4271 pg/mL (0-450)
[2021-08-21] MEDS: budesonide 0.5 mg/2 mL Neb INHALATION ×2 (09:00→20:42)
[2021-08-21] MEDS: ipratropium-albuterol 3 mL Neb INHALATION ×4 (09:00→20:42)
[2021-08-21] MEDS: pantoprazole DR 40 mg Tablet PO (09:53)
[2021-08-21] MEDS: sodium bicarbonate 650 mg Tablet PO ×2 (09:53→17:31)
[2021-08-21] MEDS: calcium carb-vit d 500mg-200unit 1 Tablet 1 EACH PO ×2 (09:53→17:43)
[2021-08-21] MEDS: losartan 50 mg Tablet 100 MG PO (09:53)
[2021-08-21] MEDS: buPROPion XL (24 HR) 150 mg Tablet PO (09:53)
[2021-08-21] MEDS: amlodipine 5 mg Tablet PO (09:53)
[2021-08-21] MEDS: predniSONE 5 mg Tablet PO (09:53)
[2021-08-21] MEDS: aspirin 81 mg Chew Tablet PO (09:54)
[2021-08-21] MEDS: carvedilol 25 mg Tablet PO ×2 (09:54→17:31)
--- NOTE | 2021-08-21 10:03 | PC.CHAP ---
Pastoral Care Encounter/Spiritual Assessment Type of Contact [] Declined window cutter visit [] Patient/Family/Request visit [] Outpatient visit [] Follow-up visit [] Physician referral [] Code/Alert [x] Routine visit [] Staff referral [] Actively dying [] Patient sleeping [] Family support [] [] Out of room [] Palliative care [] [] Receiving care in room [] Pre-surgical visit [] Trauma [] Long length of stay [] ICU visit [] Other: Relational/Emotional Strength [x] Patient feels connected with others/family/visitors/staff [] Distress [] Loneliness/isolation [] Abandonment Spirituality of Patient [x] Person of Marga [x] Attends Christian of their Marga [x] Believes in Prayer [] Reads Bible or Latter-Day materials [] There are Spiritual issues to be addressed Blind[employer]ch [place] Interventions [x] Prayer [x] Active listening [x] Non-anxious presence [x] Spiritual/emotional support [] Crisis/trauma care [] Spiritual counseling [] Bereavement support [] Provided bereavement packet [] Provided Bible/devotional materials [] Provided toy/stuffed animal, coloring book to patient or family member [] Provided Communion [] Anointing/[place] [] Salvation [x] Completed spiritual assessment [] Other: Impact on Illness or Injury [] Angry [] Fearful [] Anxious [] Often cries [] Exhaustion [] Unable to work [] Unable to attend religion [] Unable to walk/stand [] Unable to read [] Unable to drive [] Unable to eat/drink [] Unable to sleep [] Unable to be with family [] Patient intubated [] Other: Summary Pt stated she had Covid several weeks ago and had little problem. However, about a week later she began to have symptoms of Covid pneumonia and has been unable to shake it. As Pt spoke she would cough therefore, window cutter kept visit short. Pt's daughter was in room also. Time spent with patient 10m
[2021-08-21] MEDS: heparin 5,000 unit/mL INJ 1 mL 5000 UNIT SUBCUT ×2 (11:12→21:34)
--- NOTE | 2021-08-21 16:15 | P.PN_ITS ---
Subjective Subjective: Patient seen up at the sink working with physical therapy on oxygen. Patient states that she is feeling much better. Her daughter is also at the bedside. Of note the patient's pulse ox was about 86% on 3 L after this exertion. And she stated that she was feeling better and having less coughing. Vitals/I&O/Wt Last Vital Signs Temp 97.6 F 08/21/21 11:57 Pulse 81 08/21/21 15:28 Resp 20 H 08/21/21 15:22 BP 147/76 08/21/21 11:57 Pulse Ox 92 08/21/21 15:22 08/21/21 08/21/21 08/21/21 06:59 14:59 22:59 Output Total 760 / 760 Balance -760 / 540 Weight last 48 hrs Weight 87.543 kg Weight 87.543 kg Physical Exam Narrative: Patient in no acute distress at time of exam however her respir atory status was mildly to moderately impaired after exertion Heart: Normal S1-S2 without murmurs clicks gallops or rubs Lungs: Lower posterior airways with crackles and diffuse inspiratory wheezing Abdomen: Soft nontender nondistended positive bowel sounds no hepatosplenomegaly Extremities +1 pitting edema to mid calf Data : 08/21/21 01:00 08/21/21 01:00 Micro: Microbiology 08/20/21 23:00 Legionella Urinary Antigen - Final Urine,Voided Bacterial Antigens - Final 08/20/21 19:52 Blood Culture - Preliminary Blood SPECIMEN COLLECTED 08/20/21 18:05 Blood Culture - Preliminary Blood SPECIMEN COLLECTED A&P Assessment and plan (1) Hypoxia: Status: Acute (2) Kidney transplanted: Status: Acute (3) Malignant neoplasm of overlapping sites of bladder: Status: Acute (4) Hypertension: Status: Acute (5) Chronic kidney disease: Status: Acute (6) NSTEMI (non-ST elevated myocardial infarction): Status: Acute (7) History of COVID-19: Status: Acute Plan Hypoxia -Etiology unclear at this time -Possible underlying CHF, BNP is elevated at 4284, -Possible pulmonary embolism associate with COVID-19, elevated D-dimer -No history of COPD, no history of smoking -Tested positive for Covid a month ago, retested at [facility] on Friday was negative Plan: -Continue oxygen -Respiratory therapy -DuoNeb, ipratropium -Was given 40mg of Lasix; however, pt home dose is lasix 80 mg daily. , monitor urine output, monitor creatinine, potassium -Ventilation/perfusion scan-low probability -Venous ultrasound -Cardiac echocardiogram- done today but not read yet? -Follow blood cultures, sputum cultures, urine bacterial antigens- I don;t see these done -Has been given Rocephin and azithromycin in the emergency room, no focal infiltrates on chest x-ray, hold off on further antibiotics - Heparin for DVT prophylaxis -DNR/DNI -No chest pain complaints -Creatinine elevated -Baseline troponin 98- delta was negative. -EKG no acute ST-T wave changes -Serial troponins, serial EKGs, monitor troponin -Aspirin, statin Chronic kidney disease, history of transplanted kidney, history of nephrectomy, etiology unclear, follows up with nephrology at [place]; I called just after 4 pm and office is closed. teacher physically impairedmanager call center to call me back. -Baseline creatinine patient tells me is between 2 and 3 -Creatinine today 3.6 -Continue to monitor Hypertension, continue home meds Hyperlipidemia, continue home meds Overall, I suspect a component of heart failure and I will increase lasix dosing. Attestations Medical Necessity Statement*: Acute hypoxic heart failure of unknown etiology will need further work-up. Coding Level of Care Code Acute Franchise Sales Manager for Winifred Fwd Diagnoses Hypoxia R09.02 Kidney transplanted Z94.0 Malignant neoplasm of overlapping sites of bladder C67.8 Hypertension I10 Chronic kidney disease N18.9 NSTEMI (non-ST elevated myocardial infarction) I21.4 History of COVID-19 Z86.16
[2021-08-21] MEDS: FUROsemide 10 mg/mL SDV 10mL 80 MG IVP (17:31)
--- NOTE | 2021-08-21 20:55 | NM_ITS ---
WS: [id number] NUCLEAR MEDICINE VENTILATION/PERFUSION LUNG SCAN HISTORY: hx of covid 1 month ago, evaluate for pe COMPARISON: Chest radiograph 08/20/2021 TECHNIQUE: Ventilation: 32.1 mCi of Technetium 99 DTPA aerosol inhaled. Perfusion: 5.0 mCi of technetium 99m MAA IV. Heterogeneous uptake of radionuclide on the ventilatory portion. Mild deposition centrally. Heterogen eous deposition due to chronic lung disease. Better perfusion overall. There are a few matched defect s centrally but no unmatched defects. NM/NM pul vent and perfus* [id number] IMPRESSION: Low probability pulmonary embolism.
[2021-08-21] MEDS: atorvastatin 40 mg Tablet 20 MG PO (21:33)
--- NOTE | 2021-08-21 22:21 | USCV_ITS ---
Miranda Zee Age: 76 Gender: F : 1945 Exam Date: 08/21/2021 10:25 Ordering Phys: Geovany Enciso MD Technologist: FREDY Exam Location: [facility] Indication: RIGHT > LEFT thigh pain x 2-3 months. No hx DVT. HISTORY: RIGHT > LEFT thigh pain x 2-3 months. No hx DVT. PROCEDURES: The venous duplex Doppler examination of both lower extremities was performed in the standard fashion. The following venous structures were evaluated: common femoral vein, profunda vein, proximal portion of the greater saphenous vein, superficial femoral vein, and the popliteal vein. In addition, the posterior tibial veins were evaluated. FINDINGS: Normal 2-D Doppler and augmentation and compressibility throughout the lower extremity venous structures. Additional imaging through the proximal calf veins also reveals no thrombus. Limited evaluation of the greater saphenous vein is patent with no thrombus. CONCLUSIONS No DVT bilateral lower extremities. Dr. Laya Hightower DO (Electronically Signed) Final Date: 21 August 2021 11:51 S
--- NOTE | 2021-08-21 22:21 | USCV_ITS ---
Miranda Zee Age: 76 Gender: F : 1945 Exam Date: 08/21/2021 10:55 Ordering Phys: Geovany Enciso MD Technologist: FREDY Exam Location: [facility] [place] Indication: nstemi? shortness of breath, Post COVID BP: 160 / 73 HR: 78 Rhythm: Sinus Technical Quality: Adequate MEASUREMENTS (Male / Female) Normal Values 2D ECHO LV Diastolic Diameter PLAX 4.1 cm 4.2 - 5.9 / 3.9 - 5.3 cm LV Systolic Diameter PLAX 2.8 cm IVS Diastolic Thickness 1.5 cm 0.6 - 1.0 / 0.6 - 0.9 cm IVS Systolic Thickness 2.1 cm LVPW Diastolic Thickness 1.6 cm 0.6 - 1.0 / 0.6 - 0.9 cm LVPW Systolic Thickness 2.0 cm LVOT Diameter 1.9 cm LV Ejection Fraction 2D Teich 60.3 % LV Ejection Fraction MOD 2C 76.3 % LV Ejection Fraction 2C AL 76.5 % LA Diameter 4.7 cm LA Width 5.4 cm LA Height 5.4 cm RA Width 3.5 cm RA Height 4.3 cm Aorta at Sinotubular Diameter 2.7 cm M-MODE Aortic Annulus Diameter 2.9 cm LA Ao Ratio MM 1.6 MV E Point Septal Separation 0.3 cm DOPPLER AV Peak Velocity 160.0 cm/s LVOT Peak Velocity 117.0 cm/s AV Area Cont Eq vti 2.1 cm squared AV Area Cont Eq pk 2.1 cm squared MV Area PHT 3.3 cm squared Mitral E to A Ratio 0.9 MV E' Velocity 50.5 cm/s Mitral E to MV E' Ratio 13.1 Mitral E to LV E' Lateral Ratio 11.8 Mitral E to LV E' Septal Ratio 14.8 TR Peak Velocity 182.0 cm/s TR Peak Gradient 13.2 mmHg TV Peak E Velocity 52.0 cm/s Right Atrial Pressure 5.0 mmHg Pulmonary Artery Systolic Pressu 18.2 mmHg PV Peak Velocity 79.0 cm/s RV Acceleration Time 0.1 s RV Ejection Time 0.3 s RV AcT/ET 0.2 FINDINGS Left Ventricle Normal left ventricular size, systolic function and moderately increased wall thickness, with no regional wall motion abnormalities. Left ventricular ejection fraction is estimated at 70 %. Moderate concentric left ventricular hypertrophy. Grade II diastolic dysfunction, moderately elevated filling pressures. Right Ventricle Normal right ventricular size and systolic function. Right ventricular systolic pressure 18.2 mmHg. Right Atrium Normal right atrial size. Left Atrium Moderately increased left atrial size. Mitral Valve Mild mitral annular calcification. Mildly thickened mitral valve. No mitral valve stenosis. Aortic Valve Mildly thickened trileaflet aortic valve. No aortic valve stenosis. No aortic valve regurgitation. Tricuspid Valve Structurally normal tricuspid valve. No tricuspid valve stenosis. Trace tricuspid valve regurgitation. Pulmonic Valve Structurally normal pulmonic valve. Trace pulmonary valve regurgitation. Pericardium No pericardial effusion. Aorta Normal size aortic root and proximal ascending aorta. Normal- sized inferior vena cava with normal respiratory variation. CONCLUSIONS 1. Normal left ventricular size, systolic function with no regional wall motion abnormalities. Left ventricular ejection fraction is estimated at 70 %. Moderate concentric left ventricular hypertrophy. Grade II diastolic dysfunction, moderately elevated filling pressures. 2. Normal right ventricular size and systolic function. 3. Normal pulmonary artery pressure. 4. Moderately increased left atrial size. 5. No prior similar studies to compare. Virginia Javed MD (Electronically Signed) Final Date: 21 August 2021 19:50 S
[2021-08-22] VITALS (13 sets, daily range): BP systolic 134–170; BP diastolic 60–79; PULSE 80–88; RESP 17–22; TEMP 36.6–37.6; O2SAT 88–94
[2021-08-22] MEDS: benzonatate 100 mg Capsule 200 MG PO (00:56)
[2021-08-22 05:51] LABS: Basophils % 0.1 %; Hematocrit 32.4 % (37.0-47.0); Hemoglobin 10.1 g/dL (11.5-15.3); Lymphocytes # 0.4 10^3/uL (0.8-4.8); Lymphocytes % 3.2 %; Mean Corpuscular HGB Conc 31.2 g/dL (30.0-36.0); Mean Corpuscular Hemoglobin 29.2 pg (28.0-34.0); Mean Corpuscular Volume 93.6 fl (81-99); Mean Platelet Volume 9.4 fL (7.4-10.4); Monocytes # 0.4 10^3/uL (0.2-0.9); Monocytes % 3.6 %; Neutrophils # 9.79 10^3/uL (1.8-7.7); Neutrophils % 90.8 %; Nucleated Red Blood Cells % 0 %; Platelet Count 328 10^3/cmm (130-400); Red Blood Count 3.46 10^6/uL (4.1-5.3); Red Cell Distribution Width 14.1 % (12.1-15.1); White Blood Count 10.8 10^3/uL (4.0-10.0)
[2021-08-22 06:10] LABS: Alanine Aminotransferase 14 U/L (0-33); Albumin Level 2.9 g/dL (3.5-5.2); Alkaline Phosphatase 51 IU/L (35-105); Anion Gap 17.8 (5-19); Aspartate Amino Transferase 18 U/L (0-32); Blood Urea Nitrogen 66 mg/dL (8-23); Calcium 10.1 mg/dL (8.5-10.5); Carbon Dioxide 15 mmol/L (22-29); Chloride 110 mmol/L (98-107); Globulin 2.6 g/dL (1.3-4.6); Glucose 129 mg/dL (65-115); Magnesium 2.3 mg/dL (1.7-2.3); Osmolality Calculated 307 mOsm/kg (285-295); Potassium 4.8 mmol/L (3.5-5.1); Sodium 138 mmol/L (136-145); Total Bilirubin 0.2 mg/dL (0.15-1.2); Total Protein 5.5 g/dL (6.6-8.7)
[2021-08-22] MEDS: ipratropium-albuterol 3 mL Neb INHALATION ×4 (07:41→20:41)
[2021-08-22] MEDS: budesonide 0.5 mg/2 mL Neb INHALATION ×2 (07:41→20:41)
[2021-08-22] MEDS: carvedilol 25 mg Tablet PO ×2 (08:08→17:07)
[2021-08-22] MEDS: FUROsemide 10 mg/mL SDV 10mL 80 MG IVP ×2 (08:08→17:06)
[2021-08-22] MEDS: buPROPion XL (24 HR) 150 mg Tablet PO (08:08)
[2021-08-22] MEDS: pantoprazole DR 40 mg Tablet PO (08:08)
[2021-08-22] MEDS: losartan 50 mg Tablet 100 MG PO (08:08)
[2021-08-22] MEDS: predniSONE 5 mg Tablet PO (08:08)
[2021-08-22] MEDS: aspirin 81 mg Chew Tablet PO (08:08)
[2021-08-22] MEDS: amlodipine 5 mg Tablet PO (08:08)
[2021-08-22] MEDS: sodium bicarbonate 650 mg Tablet PO ×3 (08:27→21:32)
[2021-08-22] MEDS: calcium carb-vit d 500mg-200unit 1 Tablet 1 EACH PO ×2 (08:27→17:07)
[2021-08-22] MEDS: heparin 5,000 unit/mL INJ 1 mL 5000 UNIT SUBCUT ×2 (09:11→21:33)
[2021-08-22] MEDS: VALGANCICLOVIR 450 MG 450 EACH PO (09:11)
[2021-08-22] MEDS: sodium bicarbonate 8.4% 1 mEq/mL 50mL Syr 50 MEQ IVP (09:11)
--- NOTE | 2021-08-22 12:30 | PM.PN ---
Subjective Subjective: This morning patient was feeling slightly better however experiencing multiple bouts of productive cough, requested sputum sample, I have requested Covid testing updated her daughter White count jumped to 10.8 no febrile episodes, she is bringing up thick yellow sputum This morning we did discuss that she was recommended 80 mg of Lasix in the morning and 40mg in afternoon, but she stated that she thought it was an option not a scheduled regimen Vitals/I&O/Wt Last Vital Signs Temp 98.1 F 08/22/21 08:00 Pulse 87 08/22/21 11:22 Resp 20 H 08/22/21 11:22 BP 170/79 08/22/21 08:08 Pulse Ox 93 08/22/21 11:22 08/21/21 08/22/21 08/22/21 22:59 06:59 14:59 Output Total 200 / 200 300 / 500 Balance -200 / -200 -300 / -500 Weight last 48 hrs Weight 87.543 kg Weight 87.543 kg Physical Exam Narrative: She was sitting in her chair Saturating well on 3 L nasal cannula Euvolemic Awake and alert Nonfocal neuro exam She is vaccinated for COVID-19 Productive sputum Take yellow sputum noticed EOMI, PERRLA S1, S2 Bilateral basilar mild rhonchi in the base Data : 08/22/21 04:47 08/22/21 04:47 Micro: Microbiology 08/20/21 19:52 Blood Culture - Preliminary Blood NEGATIVE TO DATE 08/20/21 18:05 Blood Culture - Preliminary Blood NEGATIVE TO DATE 08/20/21 23:00 Legionella Urinary Antigen - Final Urine,Voided Bacterial Antigens - Final A&P Assessment and plan (1) Hypoxia: Status: Acute (2) Acute respiratory failure with hypoxemia: Status: Acute (3) Kidney transplanted: Status: Acute (4) Chronic kidney disease: Status: Acute Plan Hypoxia Acute hypoxia Related to volume overload and possible community-acquired pneumonia She is bringing up thick yellow sputum I will add ceftriaxone and Levaquin Requested sputum sample which has been collected in the container Jump in leukocytosis noted Afebrile She did not receive antibiotics on 08/21 Continue DuoNeb treatment For volume overload I will continue to 12-hour IV diuretic regimen Low probability for PE No signs of DVT Echo did not show any active signs of heart failure diastolic heart failure with EF 70% Acute on chronic kidney disease Cardiorenal, Continue IV diuretics Baseline creatinine seems around 3 Creatinine today 3.6 DVT prophylaxis: Heparin DNR/DNI She lives alone, Might benefit from home health services \I did speak with her daughter today and updated Attestations Medical Necessity Statement*: Discharge in next 24 to 30 hours if clinically stable Time Spent in Patient Care: Continue medical management 15 minutes Coding Level of Care Code Acute [employer] for [employer] Diagnoses Hypoxia R09.02 Acute respiratory failure with hypoxemia J96.01 Kidney transplanted Z94.0 Chronic kidney disease N18.9
[2021-08-22] MEDS: levoFLOXacin 750 mg Tablet PO (12:38)
[2021-08-22] MEDS: guaiFENesin-dextromethorphan UDC 10 mL PO ×2 (12:38→21:32)
--- NOTE | 2021-08-22 13:07 | CT_ITS ---
WS: [id number] CT CHEST WITHOUT INTRAVENOUS CONTRAST HISTORY: chf, hypoxia TECHNIQUE: Contiguous 5 mm axial imaging performed on the thorax. Coronal and sagittal reformats are submitted. All CT scans at [facility] use at least one of these dose optimization techniques: automated exposure control; mA and/or kV adjustment per patient size (includes targeted exams where dose is matched to clinical indication); or iterative reconstruction. CONTRAST: None DLP: 973.72 mGy.cm COMPARISON: 10/21/2020 Lungs and central airway: Bilateral multilobar pulmonary opacifications. Groundglass opacifications a nd increasing areas of consolidation. Opacifications of central and peripheral and involve all lobes. Pleura: Normal. No pleural effusion. Heart and pericardium: Mildly enlarged heart chambers. Mediastinum and danis: No mediastinum or hilar adenopathy. Vessels: Atherosclerosis aorta. Pulmonary artery size is equal to the aorta. Chest wall and lower neck: No soft tissue masses. Upper abdomen: Small hiatal hernia. Prior cholecystectomy. Lobulated appearance of the RIGHT kidney i s similar to the study from 10/21/2020. Cannot characterize further without IV contrast. Atheroscleros is continues into the suprarenal aorta. Well-circumscribed 2.0 x 2.1 cm cystic mass extends posterior ly from the uncinate process of the pancreas. This mass has been present since 06/27/2020 and stable. Osseous structures: Severe glenohumeral joint osteoarthritis. CT/CT chest wo con [id number] IMPRESSION: 1. Bilateral multilobar pulmonary opacifications. Consider pneumonia and pneum onitis secondary to Covid 19 as possible etiologies. 2. Mild cardiomegaly. 3. No adenopathy. 4. Prior cholecystectomy. 5. Stable cyst in the uncinate process and 06/27/2020.
[2021-08-22] MEDS: lanolin oint 7 gm 1 APPLIC TOPICAL (15:47)
[2021-08-22 16:03] LABS: Adenovirus Not Detected (NOT DETECT); Chlamydia Pneumoniae Not Detected (NOT DETECT); Coronavirus 229E,HKU1,NL63,OC4 Not Detected (NOT DETECT); Human Metapneumovirus Not Detected (NOT DETECT); Human Rhinovirus/Enterovirus Not Detected (NOT DETECT); Influenza A Not Detected (NOT DETECT); Influenza A H1 Not Detected (NOT DETECT); Influenza A H1-2009 Not Detected (NOT DETECT); Influenza A H3 Not Detected (NOT DETECT); Influenza B Not Detected (NOT DETECT); Mycoplasma Pneumoniae Not Detected (NOT DETECT); Parainfluenza Virus Type 1 Not Detected (NOT DETECT); Parainfluenza Virus Type 2 Not Detected (NOT DETECT); Parainfluenza Virus Type 3 Not Detected (NOT DETECT); Parainfluenza Virus Type 4 Not Detected (NOT DETECT); Respiratory Syncytial Virus A Not Detected (NOT DETECT); Respiratory Syncytial Virus B Not Detected (NOT DETECT); SARS-COV-2 Detected (NOT DETECT)
[2021-08-22] MEDS: acetaminophen 500 mg Tablet PO (16:19)
[2021-08-22 17:31] LABS: SARS Covid-2 Antigen Negative (Negative)
[2021-08-22] MEDS: atorvastatin 40 mg Tablet 20 MG PO (21:32)
[2021-08-23] VITALS (11 sets, daily range): BP systolic 126–175; BP diastolic 66–91; PULSE 72–90; RESP 16–20; TEMP 36.6–37.2; O2SAT 89–95
[2021-08-23] MEDS: guaiFENesin-dextromethorphan UDC 10 mL PO (01:21)
[2021-08-23 05:34] LABS: Basophils % 0.2 %; Hematocrit 34.5 % (37.0-47.0); Hemoglobin 10.7 g/dL (11.5-15.3); Lymphocytes # 0.3 10^3/uL (0.8-4.8); Lymphocytes % 3.1 %; Mean Corpuscular Hemoglobin 28.8 pg (28.0-34.0); Mean Platelet Volume 9.4 fL (7.4-10.4); Monocytes # 0.4 10^3/uL (0.2-0.9); Monocytes % 3.7 %; Neutrophils # 8.52 10^3/uL (1.8-7.7); Neutrophils % 88.4 %; Nucleated Red Blood Cells % 0 %; Platelet Count 373 10^3/cmm (130-400); Red Blood Count 3.71 10^6/uL (4.1-5.3); White Blood Count 9.6 10^3/uL (4.0-10.0)
[2021-08-23 05:55] LABS: Alanine Aminotransferase 19 U/L (0-33); Alkaline Phosphatase 57 IU/L (35-105); Anion Gap 17.5 (5-19); Aspartate Amino Transferase 27 U/L (0-32); Blood Urea Nitrogen 68 mg/dL (8-23); Calcium 10.4 mg/dL (8.5-10.5); Carbon Dioxide 17 mmol/L (22-29); Chloride 107 mmol/L (98-107); Globulin 2.8 g/dL (1.3-4.6); Glucose 94 mg/dL (65-115); Magnesium 2.1 mg/dL (1.7-2.3); Osmolality Calculated 304 mOsm/kg (285-295); Phosphorus 2.5 mg/dL (2.5-4.5); Potassium 4.5 mmol/L (3.5-5.1); Sodium 137 mmol/L (136-145); Total Bilirubin 0.2 mg/dL (0.15-1.2); Total Protein 5.8 g/dL (6.6-8.7)
[2021-08-23 06:02] LABS: Procalcitonin 0.27 ng/mL (0-0.5)
[2021-08-23 06:11] LABS: Lactate Dehydrogenase 404 U/L (135-214)
[2021-08-23] MEDS: budesonide 0.5 mg/2 mL Neb INHALATION ×2 (08:27→20:55)
[2021-08-23] MEDS: ipratropium-albuterol 3 mL Neb INHALATION ×4 (08:27→20:55)
[2021-08-23] MEDS: FUROsemide 10 mg/mL SDV 10mL 80 MG IVP (08:54)
[2021-08-23] MEDS: acetaminophen-codeine 300-30mg Tablet 1 TAB PO (09:01)
--- NOTE | 2021-08-23 09:35 | P.PN_ITS ---
Subjective Subjective: Covid PCR positive antigen negative, does not need isolation, CT chest did show bilateral infiltrate most likely this is residual COVID-19 infection considering her immunocompromise state Adequate urine output Creatinine 3.5 today Patient was not able to sleep at all because of her excessive cough/productive cough last night, will give her 1 dose of Tylenol 3 Urine antigens negative, afebrile, no leukocytosis Vitals/I&O/Wt Last Vital Signs Temp 98.9 F 08/23/21 07:35 Pulse 90 08/23/21 08:29 Resp 20 H 08/23/21 08:29 BP 175/91 08/23/21 07:35 Pulse Ox 90 08/23/21 08:29 08/22/21 08/23/21 08/23/21 22:59 06:59 14:59 Output Total 1370 / 1370 Balance -1370 / -1320 Physical Exam Narrative: Patient was sitting in her bed Saturating well on 4 L nasal cannula Looks slightly dehydrated Awake and alert Anxious appearing S1, S2 variable Abdomen soft Nonfocal neuro exam Bilateral breath sound with rhonchi at the bases Data : 08/23/21 04:35 08/23/21 04:35 Micro: Microbiology 08/22/21 12:40 Gram Stain - Final Sputum - Expectorated Sputum A&P Assessment and plan (1) History of COVID-19: Status: Acute (2) Chronic kidney disease: Status: Acute (3) Hypoxia: Status: Acute (4) Acute respiratory failure with hypoxemia: Status: Acute (5) Kidney transplanted: Status: Acute (6) Malignant neoplasm of overlapping sites of bladder: Status: Acute Plan Acute hypoxia Currently on [address] consistent with bilateral infiltrate Covid PCR positive, antigen negative, likely residual COVID-19 infection, does not need isolation, I have started on steroids, currently getting empirical antibiotic treatment No fever or leukocytosis Thank you Chronic kidney disease: Patient is stating that her baseline creatinine seems to be around 3-3.5 I have added bicarb for acidosis Bicarb tablets added, I will cut back on her Lasix We will do 40 every 12 DVT prophylaxis Heparin Productive cough: Codeine 3x1, Tessalon Perles, Robitussin Patient takes antiviral prophylactic regimen which I am continuing for now Attestations Medical Necessity Statement*: Continue medical management Time Spent in Patient Care: 15 Coding Level of Care Code Acute [employer] for [facility]oleen Diagnoses History of COVID-19 Z86.16 Chronic kidney disease N18.9 Hypoxia R09.02 Acute respiratory failure with hypoxemia J96.01 Kidney transplanted Z94.0 Malignant neoplasm of overlapping sites of bladder C67.8
--- NOTE | 2021-08-23 09:41 | XR_ITS ---
WS: [id number] PORTABLE CHEST HISTORY: hypoxia COMPARISON: 08/20/2021 Significant progression of the bilateral opacifications. Alveolar and interstitial opacifications gre atest in the lower lung newman. No pleural effusion or pneumothorax. Cardiac size: Mildly enlarged cardiac silhouette. Mediastinum/Aorta: Mild atherosclerosis aorta. Severe glenohumeral joint osteoarthritis. High riding RIGHT humeral head. XR/XR chest 1V portable [id number] IMPRESSION: 1. Significant progression of bilateral pulmonary opacifications since 2. Multi lobar pneumonia. 2. Mild cardiomegaly.
[2021-08-23] MEDS: sodium bicarbonate 650 mg Tablet PO ×3 (10:17→21:09)
[2021-08-23] MEDS: calcium carb-vit d 500mg-200unit 1 Tablet 1 EACH PO ×2 (10:17→17:43)
[2021-08-23] MEDS: buPROPion XL (24 HR) 150 mg Tablet PO (10:18)
[2021-08-23] MEDS: aspirin 81 mg Chew Tablet PO (10:18)
[2021-08-23] MEDS: pantoprazole DR 40 mg Tablet PO (10:18)
[2021-08-23] MEDS: carvedilol 25 mg Tablet PO ×2 (10:18→17:44)
[2021-08-23] MEDS: heparin 5,000 unit/mL INJ 1 mL 5000 UNIT SUBCUT ×2 (10:19→23:14)
--- NOTE | 2021-08-23 11:26 | PC.SOCIAL ---
IMM update IMM updated with patient's daughter Liv. Verbalized an understanding. Initialled, dated, timed, and placed in chart.
--- NOTE | 2021-08-23 11:45 | PC.OT ---
OT TREATMENT ATTEMPTED. PATIENT STATES THAT SHE DIDN'T SLEEP ALL NIGHT AND THAT SHE WOULD LIKE TO REST. WILLING TO ATTEMPT LATER THIS AFTERNOON.
--- NOTE | 2021-08-23 15:41 | PC.RESP ---
RT Shift Note Frequent safety and respiratory rounds continue. Orders completed as indicated. Patient monitored pre and post treatments throughout shift. Patient [Did. tolerate treatments appropriately. Condition [.DidNotChange]. Patient and/or inbound call center representative educated on respiratory treatment and medications. Patient and/or inbound call center representative [verbalized understanding. Will continue to monitor patient progress.
[2021-08-23] MEDS: hyDRALAzine 10 mg Tablet PO ×2 (15:51→21:10)
[2021-08-23] MEDS: benzonatate 100 mg Capsule 200 MG PO ×2 (15:54→21:09)
[2021-08-23] MEDS: FUROsemide 10 mg/mL SDV 4mL 80 MG IVP (16:55)
[2021-08-23 17:21] LABS: ABG PCO2 29.5 mmHg (35-45); ABG PH Result 7.41 (7.35-7.45); Arterial Blood Gas Hematocrit 35.1 % (37-47); Base Excess ABG -4.8 mmol/L (-2.0-2.0); Blood Gas Operator Identificat GD; Blood Gas Sample Site Brachial, right; Blood Gas Sample Type Arterial; HCO3 ABG 18.8 mmol/L (22-26); Oxygen Device NC; PO2 ABG 48.1 mmHg (80.0-100.0)
[2021-08-23 17:38] LABS: Influenza A by IFA Negative (Negative); Influenza B by IFA Negative (Negative)
--- NOTE | 2021-08-23 19:36 | PM.TDS ---
Transfer Summary Providers Date of Admission: 08/20/21 19:56 Date of Discharge/Transfer: 08/23/21 Attending Provider at Admission: Geovany Enciso MD Attending Provider at Transfer: Drew Hahn MD Primary Care Provider: Nelsy Palomino Transfer Plans: Anticipated date of transfer: 08/23/21. Diagnoses at Discharge Discharge Diagnosis (1) History of COVID-19: Status: Acute (2) Chronic kidney disease: Status: Acute Permanent problem details: States that she follows up with Dr. 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 On routine surveillance cystosc Reason for Visit Reason for Visit SOB; cough; COVID+ a couple of weeks ago Hospital Course Hospital Course Patient was admitted for management evaluation of hypoxic respiratory failure, since admission she was requiring 2 L of oxygen, she was aggressively diuresed with 80 mg of IV Lasix every 12 hours, she received ceftriaxone and azithromycin at the time of admission which was not given on second day, on when I saw her I started her on Levaquin and ceftriaxone. Next day I started her on PCP pneumonia empirical coverage, Atovoquone 750 mg was given on 08/23 evening, her oxygen requirement worsened ABG revealed severe hypoxia on 4 L of nasal cannula, she was transitioned to high flow nasal cannula 8 L because of rapid decline in her oxygenation and immunocompromise state considering renal transplant history I presented this case to [facility] shoe singer SHIRT OPERATOR, Angelia, who accepted the patient. Hospitalist Dr. Nagel was also presented this case who recommended ICU management. Her VQ scan did show low probability for PE, blood cultures negative, urine antigens negative, she has been afebrile, no leukocytosis, LDH greater than 400, currently on methylprednisone 40 mg IV every [address] Anderson Daughter updated Need of transfer: Patient needs higher level of care, she is high risk for rapid deterioration because of her immunocompromise state and developing bilateral infiltrate on chest x-ray She needs ICU monitoring She is DNR/DNI Physical Exam Narrative: Patient currently is on 8 L high flow nasal cannula saturating above 90% Productive cough S1, S2 Looks euvolemic Bilateral breath sound with rhonchi and crackles Abdomen soft No signs of edema of legs Awake and alert Nonfocal neuro exam EOMI, PERRLA Fatigued and lethargic TS Data Studies Completed and Pending Pending at discharge Category Date Time Status Arterial Blood Gas W/O Coox AM LABS Lab 08/24/21 04:00 Ordered Bacterial Antigen Routine Lab 08/22/21 18:32 Ordered Basic Metabolic Panel AM LABS Lab 08/24/21 04:00 Ordered Blood Culture Stat Lab 08/20/21 19:52 Results CMV PCR [CYTOMEGALOVIRUS DNA, QN, REAL] Routine Lab 08/23/21 16:05 Ordered CRP [C Reactive Protein] AM LABS Lab 08/24/21 04:00 Ordered Complete Blood Count w/Auto AM LABS Lab 08/24/21 04:00 Ordered Legionella Antigen STAT Routine Lab 08/22/21 18:32 Ordered MRSA by PCR Routine Lab 08/22/21 18:32 Ordered Pneumocystis PCP [Pneumocystis jiroveci Qual PCR] Lab 08/23/21 16:05 Ordered Routine Procalcitonin AM LABS Lab 08/24/21 04:00 Ordered Respiratory Viral Panel PCR Routine Lab 08/23/21 16:05 Ordered Sputum Culture and Gram Stain Stat Lab 08/22/21 12:40 Results Labs from last 24 hours 08/23/21 08/23/21 08/23/21 17:00 16:25 04:35 WBC RBC Hgb Hct MCV MCH MCHC RDW Plt Count MPV Neut % (Auto) Lymph % (Auto) Nelson % (Auto) Eos % (Auto) Baso % (Auto) Neut # (Auto) Lymph # (Auto) Nelson # (Auto) Eos # (Auto) Baso # (Auto) Nucleated RBC % (auto) Nucleated RBCs # Specimen Type Arterial Sample Site Brachial, right ABG pH 7.41 ABG pCO2 29.5 L ABG pO2 48.1 L ABG HCO3 18.8 L ABG Base Excess -4.8 L Jus Test N/a Hematocrit 35.1 L O2 Delivery Device Nc O2 Liters/Min 5.0 FiO2 40.0 Process Improvement Consultant ID Gd Sodium 137 Potassium 4.5 Chloride 107 Carbon Dioxide 17 L Anion Gap 17.5 BUN 68 H Creatinine 3.5 H GFR Calculation Not Reportable Glucose 94 Calculated Osmolality 304 H Calcium 10.4 Phosphorus 2.5 Magnesium 2.1 Total Bilirubin 0.2 AST 27 ALT 19 Alkaline Phosphatase 57 Lactate Dehydrogenase 404 H Total Protein 5.8 L Albumin 3.0 L Globulin 2.8 Procalcitonin 0.27 Influenza Type A Ag Negative Influenza Type B Ag Negative 08/23/21 04:35 WBC 9.6 RBC 3.71 L Hgb 10.7 L Hct 34.5 L MCV 93.0 MCH 28.8 MCHC 31.0 RDW 14.0 Plt Count 373 MPV 9.4 Neut % (Auto) 88.4 Lymph % (Auto) 3.1 Nelson % (Auto) 3.7 Eos % (Auto) 0.0 Baso % (Auto) 0.2 Neut # (Auto) 8.52 H Lymph # (Auto) 0.3 L Nelson # (Auto) 0.4 Eos # (Auto) 0.0 Baso # (Auto) 0.0 Nucleated RBC % (auto) 0 Nucleated RBCs # 0.0 Specimen Type Sample Site ABG pH ABG pCO2 ABG pO2 ABG HCO3 ABG Base Excess Jus Test Hematocrit O2 Delivery Device O2 Liters/Min FiO2 Process Improvement Consultant ID Sodium Potassium Chloride Carbon Dioxide Anion Gap BUN Creatinine GFR Calculation Glucose Calculated Osmolality Calcium Phosphorus Magnesium Total Bilirubin AST ALT Alkaline Phosphatase Lactate Dehydrogenase Total Protein Albumin Globulin Procalcitonin Influenza Type A Ag Influenza Type B Ag Completed Studies During Hospitalization Category Date Time Status CT chest wo con [id number] Routine Cat Scan 08/22/21 13:07 Completed XR chest 1V portable [id number] Routine Exams 08/23/21 09:41 Completed XR chest 1V portable [id number] Urgent Exams 08/20/21 17:39 Completed NM pul vent and perfus* [id number] Routine Nuc Med 08/21/21 20:55 [place] [id number] Urgent Ultrasound 08/21/21 22:21 Completed CV. echo complete* [id number] Routine Ultrasound 08/21/21 22:21 Completed Laboratory Last Values WBC 9.6 10^3/uL (4.0-10.0) 08/23/21 04:35 RBC 3.71 10^6/uL (4.1-5.3) L 08/23/21 04:35 Hgb 10.7 g/dL (11.5-15.3) L 08/23/21 04:35 Hct 34.5 % (37.0-47.0) L 08/23/21 04:35 MCV 93.0 fl (81-99) 08/23/21 04:35 MCH 28.8 pg (28.0-34.0) 08/23/21 04:35 MCHC 31.0 g/dL (30.0-36.0) 08/23/21 04:35 RDW 14.0 % (12.1-15.1) 08/23/21 04:35 Plt Count 373 10^3/cmm (130-400) 08/23/21 04:35 MPV 9.4 fL (7.4-10.4) 08/23/21 04:35 Neut % (Auto) 88.4 % 08/23/21 04:35 Lymph % (Auto) 3.1 % 08/23/21 04:35 Nelson % (Auto) 3.7 % 08/23/21 04:35 Eos % (Auto) 0.0 % 08/23/21 04:35 Baso % (Auto) 0.2 % 08/23/21 04:35 Neut # (Auto) 8.52 10^3/uL (1.8-7.7) H 08/23/21 04:35 Lymph # (Auto) 0.3 10^3/uL (0.8-4.8) L 08/23/21 04:35 Nelson # (Auto) 0.4 10^3/uL (0.2-0.9) 08/23/21 04:35 Eos # (Auto) 0.0 10^3/uL (0.0-0.8) 08/23/21 04:35 Baso # (Auto) 0.0 10^3/uL (0.0-0.1) 08/23/21 04:35 Nucleated RBC % (auto) 0 % 08/23/21 04:35 Nucleated RBCs # 0.0 /100WBC 08/23/21 04:35 D-Dimer 1.03 ug/mIFEU (0-0.59) H 08/20/21 19:52 Specimen Type Arterial 08/23/21 17:00 Sample Site Brachial, right 08/23/21 17:00 ABG pH 7.41 (7.35-7.45) 08/23/21 17:00 ABG pCO2 29.5 mmHg (35-45) L 08/23/21 17:00 ABG pO2 48.1 mmHg (80.0-100.0) L 08/23/21 17:00 ABG HCO3 18.8 mmol/L (22-26) L 08/23/21 17:00 ABG Base Excess -4.8 mmol/L (-2.0-2.0) L 08/23/21 17:00 Jus Test N/a 08/23/21 17:00 Hematocrit 35.1 % (37-47) L 08/23/21 17:00 O2 Delivery Device Nc 08/23/21 17:00 O2 Liters/Min 5.0 % 08/23/21 17:00 FiO2 40.0 % 08/23/21 17:00 Process Improvement Consultant ID Gd 08/23/21 17:00 Sodium 137 mmol/L (136-145) 08/23/21 04:35 Potassium 4.5 mmol/L (3.5-5.1) 08/23/21 04:35 Chloride 107 mmol/L (98-107) 08/23/21 04:35 Carbon Dioxide 17 mmol/L (22-29) L 08/23/21 04:35 Anion Gap 17.5 (5-19) 08/23/21 04:35 BUN 68 mg/dL (8-23) H 08/23/21 04:35 Creatinine 3.5 mg/dL (0.5-0.9) H 08/23/21 04:35 GFR Calculation Not Reportable 08/23/21 04:35 Glucose 94 mg/dL (65-115) 08/23/21 04:35 Estimat Average Glucose 103 08/21/21 01:00 Hemoglobin A1c 5.2 % (4.0-6.0) 08/21/21 01:00 Calculated Osmolality 304 mOsm/kg (285-295) H 08/23/21 04:35 Lactic Acid 1.0 mmol/L (0.5-2.2) 08/20/21 18:05 Calcium 10.4 mg/dL (8.5-10.5) 08/23/21 04:35 Phosphorus 2.5 mg/dL (2.5-4.5) 08/23/21 04:35 Magnesium 2.1 mg/dL (1.7-2.3) 08/23/21 04:35 Total Bilirubin 0.2 mg/dL (0.15-1.2) 08/23/21 04:35 AST 27 U/L (0-32) 08/23/21 04:35 ALT 19 U/L (0-33) 08/23/21 04:35 Alkaline Phosphatase 57 IU/L (35-105) 08/23/21 04:35 Lactate Dehydrogenase 404 U/L (135-214) H 08/23/21 04:35 Troponin T Baseline 98 ng/L (0-10) H 08/20/21 18:05 Troponin T 120 Minute 76.11 ng/L (0-10) H 08/20/21 20:18 Delta Troponin T -21.89 ABS# (0-10) L 08/20/21 20:18 Troponin T Hi Sens 6Hr 77.69 ng/L (0-10) H 08/21/21 01:00 Troponin T Hi Sens 6Hr Delta -20.31 ng/L (0-12) L 08/21/21 01:00 C-Reactive Protein 135.1 mg/L (0.0-4.9) H 08/20/21 20:18 NT-Pro-B Natriuret Pep 4271 pg/mL (0-450) H 08/21/21 01:00 Total Protein 5.8 g/dL (6.6-8.7) L 08/23/21 04:35 Albumin 3.0 g/dL (3.5-5.2) L 08/23/21 04:35 Globulin 2.8 g/dL (1.3-4.6) 08/23/21 04:35 Procalcitonin 0.27 ng/mL (0-0.5) 08/23/21 04:35 TSH 0.50 uIU/mL (0.27-4.20) 08/21/21 01:00 Coronavirus 229E (PCR) Not detected (NOT DETECT) 08/22/21 12:43 Influenza Type A Ag Negative (Negative) 08/23/21 16:25 Influenza Type B Ag Negative (Negative) 08/23/21 16:25 SARS-CoV-2 (PCR) Detected (NOT DETECT) A 08/22/21 12:43 SARS-CoV-2 Ag (Rapid) Negative (Negative) 08/22/21 16:30 Radiology Impressions Pulmonary Perfusion Imaging 08/21/21 20:55 IMPRESSION: Low probability pulmonary embolism. Chest CT 08/22/21 13:07 IMPRESSION: 1. Bilateral multilobar pulmonary opacifications. Consider pneumonia and pneumonitis secondary to Covid 19 as possible etiologies. 2. Mild cardiomegaly. 3. No adenopathy. 4. Prior cholecystectomy. 5. Stable cyst in the uncinate process and 06/27/2020. Chest X-Ray 08/23/21 09:41 IMPRESSION: 1. Significant progression of bilateral pulmonary opacifications since 08/20/2021. Multi lobar pneumonia. 2. Mild cardiomegaly. Recent Clincial Data Last Vital Signs Temp 98.7 F 08/23/21 19:20 Pulse 81 08/23/21 19:20 Resp 19 H 08/23/21 19:20 BP 175/89 08/23/21 19:20 Pulse Ox 89 L 08/23/21 19:20 Vital Signs Temp Pulse Resp BP Pulse Ox 08/23/21 19:20 98.7 F 81 19 H 175/89 89 L 08/23/21 15:54 98.7 F 81 19 H 175/89 89 L 08/23/21 15:38 77 20 H 93 08/23/21 12:12 80 20 H 90 08/23/21 12:00 97.9 F 73 16 153/75 95 08/23/21 08:29 90 20 H 90 Intake & Output/Weight 08/21/21 08/22/21 08/23/21 08/24/21 06:59 06:59 06:59 06:59 Intake Total 1300 / 1300 50 / 50 170 / 170 Output Total 760 / 760 500 / 500 1370 / 1370 1350 / 1350 Balance 540 / 540 -500 / -500 -1320 / -1320 -1180 / -1180 Weight 87.543 kg Vitals Last Vital Signs Temp 98.7 F 08/23/21 19:20 Pulse 81 08/23/21 19:20 Resp 19 H 08/23/21 19:20 BP 175/89 08/23/21 19:20 Pulse Ox 89 L 08/23/21 19:20 TS Medications Medications Acetaminophen (Acetaminophen 500 Mg Tablet) 500 mg PO Q6H PRN PRN Reason: MILD PAIN OR INCREASE TEMP Last Admin: 08/22/21 16:19 Dose: 500 mg Documented by: Albuterol/Ipratropium (Ipratropium-Albuterol 3 Ml Neb) 3 ml INHALATION QID.RESPIRATORY [facility] Last Admin: 08/23/21 15:37 Dose: 3 ml Documented by: Amlodipine Besylate (Amlodipine 10 Mg Tablet) 10 mg PO DAILY@0900 [facility] Aspirin (Aspirin 81 Mg Chew Tablet) 81 mg PO DAILY@0900 [facility] Last Admin: 08/23/21 10:18 Dose: 81 mg Documented by: Atorvastatin Calcium (Atorvastatin 40 Mg Tablet) 20 mg PO BEDTIME@2200 [facility] Last Admin: 08/22/21 21:32 Dose: 20 mg Documented by: Benzonatate (Benzonatate 100 Mg Capsule) 200 mg PO TID PRN PRN Reason: COUGH Last Admin: 08/23/21 15:54 Dose: 200 mg Documented by: Budesonide (Budesonide 0.5 Mg/2 Ml Neb) 0.5 mg INHALATION BID.RESPIRATORY [facility] Last Admin: 08/23/21 08:27 Dose: 0.5 mg Documented by: Bupropion HCl (Bupropion Xl (24 Hr) 150 Mg Tablet) 150 mg PO DAILY@0900 [facility] Last Admin: 08/23/21 10:18 Dose: 150 mg Documented by: Calcium Carbonate (Calcium Carb-Vit D 500mg-200unit 1 Tablet) 1 each PO BID@0900,1700 [facility] Last Admin: 08/23/21 17:43 Dose: 1 each Documented by: Carvedilol (Carvedilol 25 Mg Tablet) 25 mg PO BID@0900,1700 [facility] Last Admin: 08/23/21 17:44 Dose: 25 mg Documented by: Docusate Sodium (Docusate Sodium 100 Mg Capsule) 100 mg PO BID [facility] Last Admin: 08/23/21 17:44 Dose: Not Given Documented by: Furosemide (Furosemide 10 Mg/Ml Sdv 4ml) 80 mg IVP BID [facility] Last Admin: 08/23/21 16:55 Dose: 80 mg Documented by: Guaifenesin/Dextromethorphan (Guaifenesin-Dextromethorphan Udc 10 Ml) 10 ml PO Q4H PRN PRN Reason: COUGH (2nd) Last Admin: 08/23/21 01:21 Dose: 10 ml Documented by: Heparin Sodium (Porcine) (Heparin 5,000 Unit/Ml Inj 1 Ml) 5,000 unit SUBCUT Q12H [facility] Last Admin: 08/23/21 10:19 Dose: 5,000 unit Documented by: Hydralazine HCl (Hydralazine 10 Mg Tablet) 10 mg PO TID [facility] Last Admin: 08/23/21 15:51 Dose: 10 mg Documented by: Ceftriaxone Sodium 1,000 mg/ (Dextrose) 50 mls @ 100 mls/hr IV Q24H [facility]; Protocol Last Infusion: 08/23/21 13:09 Dose: Infused Documented by: Lactulose (Lactulose Oral Liq 20 Gm/30 Ml Udc) 10 gm PO DAILY PRN; Protocol PRN Reason: Constipation (see protocol) Lanolin (Lanolin Oint 7 Gm) 1 applic TOPICAL PRN PRN PRN Reason: DRYNESS Last Admin: 08/22/21 15:47 Dose: 1 applic Documented by: Levofloxacin (Levofloxacin 500 Mg Tablet) 500 mg PO Q48H [facility] Losartan Potassium (Losartan 50 Mg Tablet) 100 mg PO DAILY@0900 [facility] Last Admin: 08/22/21 08:08 Dose: 100 mg Documented by: Methylprednisolone Sodium Succinate (Methylprednisolone Sod Succ 40 Mg/Ml Inj) 40 mg IVP Q12H [facility] Last Admin: 08/23/21 08:54 Dose: 40 mg Documented by: Non-Formulary Medication (Valganciclovir [Valcyte]) 450 mg PO MoWeFr@0900 [facility] Last Admin: 08/22/21 09:11 Dose: 450 mg Documented by: Patient Own Medication - Atovaquone 750 Mg/5 Ml Susp 0 each PO BID [facility] Stop: 09/13/21 09:01 Last Admin: 08/23/21 17:46 Dose: 1 each Documented by: Ondansetron HCl (Ondansetron 2 Mg/Ml Sdv 2 Ml) 4 mg IVP Q8H PRN PRN Reason: vomiting, or N/V if npo Pantoprazole Sodium (Pantoprazole Dr 40 Mg Tablet) 40 mg PO DAILY [facility] Last Admin: 08/23/21 10:18 Dose: 40 mg Documented by: Sodium Bicarbonate (Sodium Bicarbonate 650 Mg Tablet) 650 mg PO TID [facility] Last Admin: 08/23/21 15:51 Dose: 650 mg Documented by: Discontinued Medications Acetaminophen/Codeine Phosphate (Acetaminophen-Codeine 300-30mg Tablet) 1 tab PO NOW ONE Stop: 08/23/21 09:01 Last Admin: 08/23/21 09:01 Dose: 1 tab Documented by: Albuterol/Ipratropium (Ipratropium-Albuterol 3 Ml Neb) 3 ml INHALATION ONCE ONE Stop: 08/20/21 18:32 Last Admin: 08/20/21 20:20 Dose: 3 ml Documented by: Amlodipine Besylate (Amlodipine 5 Mg Tablet) 5 mg PO DAILY@0900 [facility] Last Admin: 08/22/21 08:08 Dose: 5 mg Documented by: Dexamethasone (Dexamethasone 10 Mg/Ml Inj) 10 mg IVP ONCE ONE Stop: 08/20/21 18:32 Last Admin: 08/20/21 19:07 Dose: 10 mg Documented by: Furosemide (Furosemide 10 Mg/Ml Sdv 4ml) 40 mg IVP ONCE ONE Stop: 08/20/21 22:22 Last Admin: 08/20/21 23:15 Dose: 40 mg Documented by: Furosemide (Furosemide 10 Mg/Ml Sdv 10ml) 80 mg IVP BID [facility] Last Admin: 08/23/21 08:54 Dose: 80 mg Documented by: Furosemide (Furosemide 10 Mg/Ml Sdv 4ml) 40 mg IVP BID [facility] Sodium Chloride (Sodium Chloride 0.9%) 1,000 mls @ 999 mls/hr IV .Q1H1M ONE Stop: 08/20/21 19:59 Last Infusion: 08/20/21 21:47 Dose: Infused Documented by: Azithromycin 500 mg/ Sodium (Chloride) 250 mls @ 250 mls/hr IV ONCE ONE; Protocol Stop: 08/20/21 20:30 Last Infusion: 08/20/21 21:44 Dose: Infused Documented by: Ceftriaxone Sodium 1,000 mg/ (Sodium Chloride) 50 mls @ 100 mls/hr IV ONCE ONE; Protocol Stop: 08/20/21 20:00 Last Infusion: 08/20/21 20:18 Dose: Infused Documented by: Ceftriaxone Sodium 1,000 mg/ (Sodium Chloride) 50 mls @ 100 mls/hr IV Q24H [facility]; Protocol Last Admin: 08/22/21 21:49 Dose: Not Given Documented by: Levofloxacin (Levofloxacin 750 Mg Tablet) 750 mg PO ONCE ONE; Protocol Stop: 08/22/21 12:31 Last Admin: 08/22/21 12:38 Dose: 750 mg Documented by: Prednisone (Prednisone 5 Mg Tablet) 5 mg PO DAILY@0900 [facility] Last Admin: 08/22/21 08:08 Dose: 5 mg Documented by: Sodium Bicarbonate (Sodium Bicarbonate 650 Mg Tablet) 650 mg PO BID [facility] Last Admin: 08/21/21 17:31 Dose: 650 mg Documented by: Sodium Bicarbonate (Sodium Bicarbonate 8.4% 1 Meq/Ml 50ml Syr) 50 meq IVP ONCE ONE Stop: 08/22/21 08:21 Last Admin: 08/22/21 09:11 Dose: 50 meq Documented by: Allergies amitriptyline Allergy (Verified 08/13/21 11:48) unknown desloratadine [From Clarinex] Allergy (Verified 08/13/21 11:48) Unknown doxazosin [From Cardura] Allergy (Verified 08/13/21 11:48) Unknown doxycycline Allergy (Verified 08/13/21 11:48) Unknown escitalopram [From Lexapro] Allergy (Verified 08/13/21 11:48) Unknown fluoxetine [From Prozac] Allergy (Verified 08/13/21 11:48) Unknown hydrochlorothiazide Allergy (Verified 08/13/21 11:48) unknown latex Allergy (Verified 08/13/21 11:48) itching nifedipine [From Procardia] Allergy (Verified 08/13/21 11:48) Unknown paroxetine [From Paxil] Allergy (Verified 08/13/21 11:48) Unknown sertraline [From Zoloft] Allergy (Verified 08/13/21 11:48) Unknown spironolactone Allergy (Verified 08/13/21 11:48) Unknown Sulfa (Sulfonamide Antibiotics) Allergy (Verified 08/13/21 11:48) Unknown sulfamethoxazole [From Bactrim] Allergy (Verified 08/13/21 11:48) Unknown trimethoprim [From Bactrim] Allergy (Verified 08/13/21 11:48) Unknown zolpidem [From Ambien] Allergy (Verified 08/13/21 11:48) Unknown acetaminophen [From Tylenol PM] Adverse Reaction (Verified 08/13/21 11:48) tingling in the face adhesive tape Adverse Reaction (Verified 08/13/21 11:48) itching amlodipine Adverse Reaction (Verified 08/13/21 11:48) cough atenolol Adverse Reaction (Verified 08/13/21 11:48) cough diphenhydramine [From Tylenol PM] Adverse Reaction (Verified 08/13/21 11:48) tingling in the face guaifenesin [From Entex LA] Adverse Reaction (Verified 08/13/21 11:48) sinus pressure Iodinated Contrast Media Adverse Reaction (Verified 08/13/21 11:48) nausea lisinopril Adverse Reaction (Verified 08/13/21 11:48) cough metoprolol Adverse Reaction (Verified 08/13/21 11:48) cough penicillin G Adverse Reaction (Verified 08/13/21 11:48) passed out phenylephrine [From Entex LA] Adverse Reaction (Verified 08/13/21 11:48) sinus pressure phenylpropanolamine [From Entex LA] Adverse Reaction (Verified 08/13/21 11:48) sinus pressure trazodone Adverse Reaction (Verified 08/13/21 11:48) sinus pressure Home Medications acetaminophen 325 mg capsule (Tylenol) 650 mg PO PRN 09/21/19 [History Confirmed 08/21/21] bupropion HCl 150 mg 24 hr tablet, extended release 150 mg PO DAILY@0900 09/21/19 [History Confirmed 08/21/21] pravastatin 10 mg tablet 10 mg PO BEDTIME@2200 09/21/19 [History Confirmed 08/21/21] aspirin 81 mg chewable tablet 81 mg PO DAILY@0900 06/28/20 [History Confirmed 08/21/21] carvedilol 25 mg tablet 25 mg PO BID@0900,1700 06/28/20 [History Confirmed 08/21/21] pantoprazole 40 mg tablet,delayed release 40 mg PO DAILY@0900 06/28/20 [History Confirmed 08/21/21] sodium bicarbonate 650 mg tablet 650 mg PO BID 06/28/20 [History Confirmed 08/21/21] cholecalciferol (vitamin D3) 50 mcg (2,000 unit) capsule 50 mcg PO DAILY@0900 07/31/20 [History Confirmed 08/21/21] furosemide 80 mg tablet 80 mg PO DAILY@0900 07/31/20 [History Confirmed 08/21/21] prednisone 5 mg tablet 5 mg PO DAILY@0900 07/31/20 [History Confirmed 08/21/21] losartan 100 mg tablet 100 mg PO DAILY@0900 10/25/20 [History Confirmed 08/21/21] amlodipine 2.5 mg tablet 5 mg PO DAILY@0900 #0 tab 12/23/20 [Rx Confirmed 08/21/21] calcium carbonate 500 mg (1,250 mg)-vitamin D3 200 unit tablet (Oysco 500/D) 1 tab PO BID@0900,1700 12/23/20 [History Confirmed 08/21/21] azithromycin 250 mg tablet See Rx Instructions PO .COMPLEX 5 Days #6 tab 08/13/21 [Rx Confirmed 08/21/21] benzonatate 200 mg capsule 200 mg PO BID PRN 08/21/21 [History Confirmed 08/21/21] doxycycline hyclate 100 mg capsule 100 mg PO BID 08/21/21 [History Confirmed 08/21/21] zolpidem 5 mg tablet (Ambien) 5 mg PO BEDTIME PRN 08/21/21 [History Confirmed 08/21/21] valganciclovir 450 mg tablet (Valcyte) See Rx Instructions .ROUTE .COMPLEX 08/22/21 [History Confirmed 08/22/21] Discharge Plan Discharge Patient Disposition: Home Condition: Stable Prescriptions: No Action acetaminophen [Tylenol] 325 mg capsule 650 mg PO PRN 0RF pravastatin 10 mg tablet 10 mg PO BEDTIME@2200 0RF bupropion HCl 150 mg tablet extended release 24 hr 150 mg PO DAILY@0900 0RF losartan 100 mg tablet 100 mg PO DAILY@0900 0RF azithromycin 250 mg tablet See Rx Instructions PO .COMPLEX 5 Days Qty: 6 0RF Rx Instructions: take 500 mg today (day 1), then 250 mg for 4 days (days 2-5) PO carvedilol 25 mg Tablet 25 mg PO BID@0900,1700 0RF sodium bicarbonate 650 mg Tablet 650 mg PO BID 0RF pantoprazole 40 mg Tablet,Delayed Release (Dr/Ec) 40 mg PO DAILY@0900 0RF aspirin 81 mg Tablet,Chewable 81 mg PO DAILY@0900 0RF doxycycline hyclate 100 mg Capsule 100 mg PO BID 0RF benzonatate 200 mg capsule 200 mg PO BID PRN (Reason: Cough) 0RF Ambien 5 mg Tablet 5 mg PO BEDTIME PRN (Reason: Insomnia) 0RF Valcyte 450 mg Tablet See Rx Instructions .ROUTE .COMPLEX 0RF Rx Instructions: 450 mg orally, M,W,F prednisone 5 mg Tablet 5 mg PO DAILY@0900 0RF furosemide 80 mg tablet 80 mg PO DAILY@0900 0RF cholecalciferol (vitamin D3) 50 mcg (2,000 unit) capsule 50 mcg PO DAILY@0900 0RF calcium carbonate-vitamin D3 [Oysco 500/D] 500 mg(1,250mg) -200 unit tablet 1 tab PO BID@0900,1700 0RF amlodipine 2.5 mg tablet 5 mg PO DAILY@0900 Qty: 0 0RF Rx Instructions: *SEE PHARMACY COMMENT* Discharge Orders: Transfer Out of Facility (Order); Ordered 08/23/21 Ordered By: Drew Hahn Referrals: Nelsy Palomino [Primary Care Provider] - Discharge Diet: Cardiac Patient Instructions: Opioid Safety Transfer Attestations Time Spent in Transfer Care: greater than 30 min Quality Metrics Clinical Quality Measures [ No reported AMI, CVA or VTE this stay] Coding Level of Care Code 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
[2021-08-23] MEDS: atorvastatin 40 mg Tablet 20 MG PO (21:09)
[2021-08-24] VITALS: BP 159/83; PULSE 83; RESP 16; TEMP 36.7; O2SAT 90
== END 2021-08-24 01:10 | disposition short-term general hospital (02) | DRG 193 ==
LOC: ER 20:51 → MEDSURG 21:05
PROVIDERS: Admitting Provider Family Medicine; Emergency Provider Emergency Medicine; PCP Nurse Practitioner Family; Visit Provider Internal Medicine
DX: J18.9 Pneumonia, unspecified organism (principal); U07.1 COVID-19; J96.01 Acute respiratory failure with hypoxia; N17.9 Acute kidney failure, unspecified; Z94.0 Kidney transplant status; I12.9 Hypertensive chronic kidney disease with stage 1 through stage 4 chronic kidney disease, or unspecified chronic kidney disease; N18.9 Chronic kidney disease, unspecified; Z96.643 Presence of artificial hip joint, bilateral; Z96.653 Presence of artificial knee joint, bilateral; E20.9 Hypoparathyroidism, unspecified; Z85.51 Personal history of malignant neoplasm of bladder; Z90.5 Acquired absence of kidney; Z87.891 Personal history of nicotine dependence; E78.5 Hyperlipidemia, unspecified; Z66 Do not resuscitate
CPT/HCPCS: 36415; 36600; 71045; 71250; 78014; 80053; 82803; 83036; 83605; 83615; 83735; 83880; 84100; 84145; 84443; 84484; 85025; 85378; 86140; 86403; 87040; 87070; 87205; 87426; 87449; 87635; 87804; 93005; 93306; 93970; 94640; 94664; 96365; 96367; 96372; 96375; 97110; 97161; 97165; 97530; 97535; 99285; A9540; A9567; J0456; J0696; J1100; J1644; J1940; J2920; J7030; J7050; J7512; J7626